=== PATIENT | male | born 1955 | race African-American/Black ===

== ENCOUNTER → 2017-08-22 16:59 | Outpatient (CLI) | payer OTHER, MEDICAID, SELFPAY ==
--- NOTE | 2017-08-22 17:03 | DI.MRI.S_ITS ---
PROCEDURE: MR KNEE RT WO CON INDICATIONS: RIGHT KNEE PAIN TECHNIQUE: Noncontrast sagittal PD fast spin echo and T2 fast spin echo with fat saturation, sagittal 3-D FLASH with fat saturation; coronal T1 spin echo and PD fast spin echo with fat saturation, and axial PD fast spin echo with fat saturation through the knee. COMPARISON: None. FINDINGS: Image quality: Excellent. Menisci: The medial and lateral menisci demonstrate normal morphology and internal signal. The meniscal root ligaments appear intact. Cruciate ligaments: The anterior and posterior cruciate ligaments appear intact. Medial structures: The medial collateral ligament appears intact. The posterior oblique ligament, semimembranosus tendon insertions, oblique popliteal ligament, and meniscocapsular junction appear intact. Visualized portions of the pes anserinus tendons appear normal. No abnormal bursal fluid. Lateral structures: The lateral collateral ligament, long and short heads of the biceps femoris tendon appear intact. The popliteus tendon appears normal; the popliteofibular ligament appears intact. The posterosuperior and anteroinferior popliteomeniscal fascicles appear intact. The arcuate and fabellofibular ligaments appear intact, on either side of the lateral inferior geniculate artery. Iliotibial band appears normal. Anterior structures: The quadriceps and patellar tendons appear intact. Patellar alignment is normal. No femoral trochlear dysplasia or ventral trochlear prominence. No edema in the infrapatellar fat pad. Bones and cartilage: No bone marrow contusions or fractures. The cartilage of the medial and lateral femorotibial compartments, as well as the patellofemoral compartment, appears only mildly reduced in thickness best seen at the medial compartment and the lateral facet of the patellofemoral joint. Joint space: There is physiologic knee joint fluid. No Shah's cyst. Normal appearing synovial plicae are incidentally noted. IMPRESSION: No meniscal tear or intra-articular loose body is found. Mild degenerative osteoarthritis as indicated by thinning of the medial compartment joint width and also that of the lateral facet of the patellofemoral joint. No ligamentous injury is found. Dictated by: Ronaldo Nelson M.D. on 08/23/2017 at 15:08 Approved by: Ronaldo Nelson M.D. on 08/23/2017 at 15:11
== END ==
PROVIDERS: Visit Provider Orthopaedic Surgery
DX: M25.561 Pain in right knee (principal); M17.11 Unilateral primary osteoarthritis, right knee
CPT/HCPCS: 73721

== ENCOUNTER 2017-09-08 11:15 | Outpatient (RCR) | payer OTHER, SELFPAY ==
--- NOTE | 2017-07-27 06:51 | PT.OIE ---
Current Diagnoses Unilateral primary osteoarthritis, right knee (07/26/17) Other abnormalities of gait and mobility (07/26/17) History of falling (07/26/17) Presence of right artificial hip joint (07/26/17) Past Medical History (Last Updated 07/26/17 @ 15:56 by Keerthi Torres, PT) Dacosta's palsy (Acute) Hypertension (Acute) Past Surgical History (Last Updated 07/26/17 @ 15:55 by Keerthi Torres, PT) History of hip replacement, total (Acute) S/P cervical spinal fusion (Acute) History of vasectomy Provider Visit Care Team Role Provider Type Lokesh Sheikh DO Attending Provider Non-Staff Specialty: Orthopedics Address: [address] [place] [address], [id number] Email: Physical Therapy Initial Evaluation PT-OP-A Visit Information Start: 07/26/17 07:24 Freq: Status: Active Protocol: Document 07/26/17 11:15 AMB (Rec: 07/26/17 16:11 AMB [email or web address]) Out-Patient Physical Therapy Visit Information Visit Information Visit Type Initial Evaluation Visit Note 45 visits per calendar year Visit Start Time 11:15 Visit Stop Time 12:05 Total Visit Minutes 50 Visit Number 1 Evaluation Information Evaluation Date 07/26/17 PT-OP-B Current Condition Start: 07/26/17 07:24 Freq: Status: Active Protocol: Document 07/26/17 11:15 AMB (Rec: 07/26/17 16:11 AMB [email or web address]) Current Condition History of Current Condition History of Current Condition The patient had a RIGHT lateral approach total hip replacement at the end of April 2017. He had a history of hip pain for many years, with some right knee pain. After the hip replacement, his hip pain has been well controlled, but he started having knee pain. He had a cortisone injection on and per his report that has taken away the knee pain, but he continues to have numbness and weakness in the right knee. He is wearing an over the counter brace on his knee, because he the the knee has given out on occasion and is fearful of falling. 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 Roll over in bed without pain. Don socks independently. Move from sit to stand without pain. Walk without a limp/ SPC. Ascend and descend stairs with an alternating gait pattern. Prior Functional Status Baseline Function- ADL's Modified Independent Baseline Function- Mobility Modified Independent Baseline Function- Gait Previously used over the counter knee brace but not using AD. Baseline Function- Work/School Had coworkers help lift the really heavy stuff, but was able to stand for 8 hours. Current Functional Impairments (Reported) Functional Limitations- ADL's Unable to don socks. Functional Limitations- Mobility/Gait Uses SPC for short distances, 4WW for longer distances (in the community). Functional Limitations- Work/School Has not yet returned to work. 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 PT-OP-C Subjective Start: 07/26/17 07:24 Freq: Status: Active Protocol: Document 07/26/17 11:15 AMB (Rec: 07/26/17 16:11 AMB [email or web address]) OP-PT Subjective Patient Comments Patient Comments The patient is concerned about his knee numbness and weakness. 11 weeks out from surgery. OP-PT Pain Assessment Pain Assessment Grid Paper Pain Assessment Grid Completed Yes Location R knee Intensity 5 Scale Used Numeric (1 - 10) Frequency Intermittent Radiating Location anterior and posterior knee Pain Alleviating Factors Heat Other Pain Alleviating Factors movement (walking) PT-OP-G Mobility & Gait Start: 07/26/17 07:24 Freq: Status: Active Protocol: Document 07/26/17 11:15 AMB (Rec: 07/26/17 16:56 AMB [email or web address]) OP Mobility Evaluation Bed Mobility Rolling Pain and difficulty rolling OP Gait Assessment Gait Gait Assistance Required: Standby Assistance Assistive Devices Assistive Device Straight Cane Gait Deviations General Gait Pattern Antalgic Comments Gait Comments Decreased knee flexion with swing phase on the right. Fixed hip flexion, flat lumbar spine, lack of trunk rotation . PT-OP-J Posture/Palpation/Skin Start: 07/26/17 07:24 Freq: Status: Active Protocol: Document 07/26/17 11:15 AMB (Rec: 07/26/17 16:58 AMB [email or web address]) Posture Evaluation Position Standing Evaluation View Anterior Head/C-Spine Posture Forward Head Comments Posture Comments Fixed hip flexion in standing, flat lumbar spine. Palpation Assessment Location One Palpation Location R knee/ hip Palpation Findings Edema Palpation Details Mild swelling in popliteal fossa. No increase in pain with palpation of bony or soft tissue structures. Light touch sensation intact. PT-OP-K Range of Motion Start: 07/26/17 07:24 Freq: Status: Active Protocol: Document 07/26/17 11:15 AMB (Rec: 07/26/17 16:47 AMB [email or web address]) Hip Goniometric Range of Motion Hip Measured in Degrees Left Testing Position Supine Flexion w/Knee Flexed 100 Right Testing Position Supine Flexion w/Knee Flexed 85 Internal Rotation 10 External Rotation 15 Hip ROM Limitations Hip ROM Limitations Contracture Comments missing 35 degrees from neutral extension on the right , missing 10 degrees on the left Knee Goniometric Range of Motion Knee Measured in Degrees Right Patient Position Supine Flexion Passive (degrees) 115 Extension Passive (degrees) 2 PT-OP-M Strength Start: 07/26/17 07:24 Freq: Status: Active Protocol: Document 07/26/17 11:15 AMB (Rec: 07/26/17 16:47 AMB [email or web address]) Hip Strength Hip Manual Muscle Testing Left Flexion (L2) 4 Good Extension (S1) 4 Good Abduction 4 Good Right Flexion (L2) 4- Good- Extension (S1) 4- Good- Abduction 3+ Fair+ Comments pain with abduction Knee Strength Knee Manual Muscle Testing Left Flexion (S2) 4+ Good+ Extension (L3) 4+ Good+ Right Flexion (S2) 4 Good Extension (L3) 4 Good Ankle/Foot Strength Ankle and Foot Manual Muscle Testing Left Dorsiflexion (L4) 5 Normal Plantarflexion (S1) 5 Normal Right Dorsiflexion (L4) 5 Normal Plantarflexion (S1) 5 Normal PT-OP-T Assessment and Plan Start: 07/26/17 07:24 Freq: Status: Active Protocol: Document 07/26/17 11:15 AMB (Rec: 07/26/17 17:09 AMB [email or web address]) Physical Therapy Assessment Rehab Potential Rehabilitation Potential Good Evaluation Complexity Number of Personal Factors/Comorbidities 1-2 Number of Body Systems Impaired 4 or More Clinical Presentation at Evaluation Evolving Impairments Impairments Activity Tolerance Balance Edema Functional Activities Functional Mobility Gait Pain Posture ROM Strength Goals 4 Impairment Lifting Short Term Goal (STG) The patient will perform a partial squat without upper extremity support without loss of balance. STG Duration 4 weeks Assisted Goal (LTG) The patient will lift 20 pounds from the floor to waist height. LTG Duration 8 weeks 3 Impairment Gait Short Term Goal (STG) The patient will ambulate without assistive device without antalgia over smooth surfaces for 100 feet. STG Duration 4 weeks Permanent Waver Goal (LTG) The patient will ambulate in the community (hills, grass, gravel) for 20 minutes without LOB or an increase in pain. LTG Duration 8 weeks 2 Impairment Transfers Short Term Goal (STG) The patient will perform all bed mobility without increasing his pain or numbness. STG Duration 4 weeks Permanent Waver Goal (LTG) The patient will move from sit to stand without an increase in pain or numbness. LTG Duration 8 weeks 1 Impairment ROM Short Term Goal (STG) The patient will improve his hip range of motion on the right to lacking 10 degrees. STG Duration 4 weeks Permanent Waver Goal (LTG) The patient will improve his knee and hip range of motion so that he can stand upright with good posture without his cane for 20 minutes without an increase in pain. LTG Duration 8 weeks Assessment Summary Assessment The patient presents 11 weeks s/p lateral approach R ANTON. He was previously having knee pain on the right, but had a cortisone shot and that helped with the knee pain but not the weakness or the numbness. The numbness is intermittent in nature, worse with sit to stand and rolling in bed, but numbness also makes him grimace like it is painful. He presents with difficulty with gait and functional mobility, and is hoping to return to work which will require extensive standing. The patient will benefit from strengthening his knee and hip musculature in addition to working to reduce his hip flexion contracture. Physical Therapy Plan Frequency and Duration Frequency of Treatment 2x/Week Duration of Treatment 8 weeks Plan of Care Start Date 07/26/17 Plan of Care End Date 08/21/17 Therapeutic Interventions Therapeutic Interventions Aquatic Therapy Balance Training Gait Training Home Exercise Program Joint Mobilizations Manual Therapy Neuromuscular Re-education Self-Care/Home Management Therapeutic Activities Therapeutic Exercises Modalities Cold Pack/Ice Massage Electric Stimulation Hot Packs Next Visit Focus/Plan Next Visit Plan Begin instruction in HEP for hip/knee strengthening and ROM . Begin instruction in body mechanics. Provider Signature Date
--- NOTE | 2017-07-27 06:54 | PT.OPPOC ---
Current Diagnoses Unilateral primary osteoarthritis, right knee (07/26/17) Other abnormalities of gait and mobility (07/26/17) History of falling (07/26/17) Presence of right artificial hip joint (07/26/17) Provider Visit Care Team Role Provider Type Lokesh Sheikh DO Attending Provider Non-Staff Specialty: Orthopedics Address: [address] [place] [address], [id number] Email: Plan Of Care PT-OP-T Assessment and Plan Start: 07/26/17 07:24 Freq: Status: Active Protocol: Document 07/26/17 11:15 AMB (Rec: 07/26/17 17:09 AMB [email or web address]) Physical Therapy Assessment Rehab Potential Rehabilitation Potential Good Evaluation Complexity Number of Personal Factors/Comorbidities 1-2 Number of Body Systems Impaired 4 or More Clinical Presentation at Evaluation Evolving Impairments Impairments Activity Tolerance Balance Edema Functional Activities Functional Mobility Gait Pain Posture ROM Strength Goals 4 Impairment Lifting Short Term Goal (STG) The patient will perform a partial squat without upper extremity support without loss of balance. STG Duration 4 weeks Assisted Goal (LTG) The patient will lift 20 pounds from the floor to waist height. LTG Duration 8 weeks 3 Impairment Gait Short Term Goal (STG) The patient will ambulate without assistive device without antalgia over smooth surfaces for 100 feet. STG Duration 4 weeks Franchise Development Manager Goal (LTG) The patient will ambulate in the community (hills, grass, gravel) for 20 minutes without LOB or an increase in pain. LTG Duration 8 weeks 2 Impairment Transfers Short Term Goal (STG) The patient will perform all bed mobility without increasing his pain or numbness. STG Duration 4 weeks Franchise Development Manager Goal (LTG) The patient will move from sit to stand without an increase in pain or numbness. LTG Duration 8 weeks 1 Impairment ROM Short Term Goal (STG) The patient will improve his hip range of motion on the right to lacking 10 degrees. STG Duration 4 weeks Franchise Development Manager Goal (LTG) The patient will improve his knee and hip range of motion so that he can stand upright with good posture without his cane for 20 minutes without an increase in pain. LTG Duration 8 weeks Assessment Summary Assessment The patient presents 11 weeks s/p lateral approach R ANTON. He was previously having knee pain on the right, but had a cortisone shot and that helped with the knee pain but not the weakness or the numbness. The numbness is intermittent in nature, worse with sit to stand and rolling in bed, but numbness also makes him grimace like it is painful. He presents with difficulty with gait and functional mobility, and is hoping to return to work which will require extensive standing. The patient will benefit from strengthening his knee and hip musculature in addition to working to reduce his hip flexion contracture. Physical Therapy Plan Frequency and Duration Frequency of Treatment 2x/Week Duration of Treatment 8 weeks Plan of Care Start Date 07/26/17 Plan of Care End Date 08/21/17 Therapeutic Interventions Therapeutic Interventions Aquatic Therapy Balance Training Gait Training Home Exercise Program Joint Mobilizations Manual Therapy Neuromuscular Re-education Self-Care/Home Management Therapeutic Activities Therapeutic Exercises Modalities Cold Pack/Ice Massage Electric Stimulation Hot Packs Next Visit Focus/Plan Next Visit Plan Begin instruction in HEP for hip/knee strengthening and ROM . Begin instruction in body mechanics. Plan of Care Dates Plan of Care Start Date 07/26/17 Plan of Care End Date 08/21/17 Please Sign and Return: I have reviewed this Plan of Care and certify that the skilled therapy services above are required to meet the patient???s needs. Physician Signature Date Printed Name and Credentials
--- NOTE | 2017-07-28 17:18 | PT.OTN ---
Current Diagnoses Unilateral primary osteoarthritis, right knee (07/28/17) Presence of right artificial hip joint (07/28/17) Physical Therapy Treatment Note PT-OP-A Visit Information Start: 07/26/17 07:24 Freq: Status: Active Protocol: Document 07/28/17 15:15 DCW (Rec: 07/28/17 17:18 DCW [id number]) Out-Patient Physical Therapy Visit Information Visit Information Visit Type Treatment Note Visit Start Time 15:15 Visit Stop Time 16:05 Total Visit Minutes 50 Visit Number 2 Evaluation Information Evaluation Date 07/26/17 PT-OP-B Current Condition Start: 07/26/17 07:24 Freq: Status: Active Protocol: Document 07/26/17 11:15 AMB (Rec: 07/26/17 16:11 AMB [email or web address]) Current Condition History of Current Condition History of Current Condition The patient had a RIGHT lateral approach total hip replacement at the end of April 2017. He had a history of hip pain for many years, with some right knee pain. After the hip replacement, his hip pain has been well controlled, but he started having knee pain. He had a cortisone injection on and per his report that has taken away the knee pain, but he continues to have numbness and weakness in the right knee. He is wearing an over the counter brace on his knee, because he the the knee has given out on occasion and is fearful of falling. 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 Roll over in bed without pain. Don socks independently. Move from sit to stand without pain. Walk without a limp/ SPC. Ascend and descend stairs with an alternating gait pattern. Prior Functional Status Baseline Function- ADL's Modified Independent Baseline Function- Mobility Modified Independent Baseline Function- Gait Previously used over the counter knee brace but not using AD. Baseline Function- Work/School Had coworkers help lift the really heavy stuff, but was able to stand for 8 hours. Current Functional Impairments (Reported) Functional Limitations- ADL's Unable to don socks. Functional Limitations- Mobility/Gait Uses SPC for short distances, 4WW for longer distances (in the community). Functional Limitations- Work/School Has not yet returned to work. 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 PT-OP-C Subjective Start: 07/26/17 07:24 Freq: Status: Active Protocol: Document 07/28/17 15:15 DCW (Rec: 07/28/17 17:18 DCW [id number]) OP-PT Subjective Patient Comments Patient Comments Pt reports he feels okay. PT-OP-Q Treatments Start: 07/26/17 07:24 Freq: Status: Active Protocol: Document 07/28/17 15:15 DCW (Rec: 07/28/17 17:18 DCW [id number]) Cardio Equipment Recumbent Elliptical (BiodAppwoRx) Duration (Minutes) 5 Resistance 3 Seat Position 16 Gym Equipment Shuttle Recovery Unilateral Squats Resistance 62# Shuttle Recovery Platform Stable Reps/Time x20 Bilateral Squats Resistance 125# Shuttle Recovery Platform Stable Reps/Time x20 Therapeutic Exercises Supine Exercises 2 Supine Exercise Name SLR Resistance 0 1 Supine Exercise Name Bridging Sidelying Exercises 2 Sidelying Exercise Name SLR - Abduction Side right Comments Pillow between legs 1 Sidelying Exercise Name Clam Shell Side right Equipment Used Pillow between legs Standing Exercises 1 Standing Exercise Name Step-ups Side right Equipment Used 6 step, Rail Manual Therapy Treatment Soft Tissue Mobilization 1 Body Location Psoas Mobilization Type Strumming Sustained Pressure Intensity/Depth Deep Body Position Supine Manual Techniques 2 Type Hamsting manual tissue elongation Body Position Supine 1 Type Hip flexor manual tissue elongation Body Position Supine PT-OP-R Modalities Start: 07/26/17 07:24 Freq: Status: Active Protocol: Document 07/28/17 15:15 DCW (Rec: 07/28/17 17:18 DCW [id number]) Hot Pack/Cold Pack Treatment Cold Pack Location R hip Patient Position Supine Treatment Duration (minutes) 10 Patient Tolerance Good PT-OP-T Assessment and Plan Start: 07/26/17 07:24 Freq: Status: Active Protocol: Document 07/28/17 15:15 DCW (Rec: 07/28/17 17:18 DCW [id number]) Physical Therapy Assessment Rehab Potential Rehabilitation Potential Good Impairments Impairments Activity Tolerance Balance Edema Functional Activities Functional Mobility Gait Pain Posture ROM Strength Goals 4 Impairment Lifting Short Term Goal (STG) The patient will perform a partial squat without upper extremity support without loss of balance. STG Duration 4 weeks Shelter Goal (LTG) The patient will lift 20 pounds from the floor to waist height. LTG Duration 8 weeks 3 Impairment Gait Short Term Goal (STG) The patient will ambulate without assistive device without antalgia over smooth surfaces for 100 feet. STG Duration 4 weeks Shelter Goal (LTG) The patient will ambulate in the community (hills, grass, gravel) for 20 minutes without LOB or an increase in pain. LTG Duration 8 weeks 2 Impairment Transfers Short Term Goal (STG) The patient will perform all bed mobility without increasing his pain or numbness. STG Duration 4 weeks Shelter Goal (LTG) The patient will move from sit to stand without an increase in pain or numbness. LTG Duration 8 weeks 1 Impairment ROM Short Term Goal (STG) The patient will improve his hip range of motion on the right to lacking 10 degrees. STG Duration 4 weeks Shelter Goal (LTG) The patient will improve his knee and hip range of motion so that he can stand upright with good posture without his cane for 20 minutes without an increase in pain. LTG Duration 8 weeks Assessment Summary Assessment Pt tolerated TherEx well today , although was clearly fatigued by the end. Pt continues to struggle with hip extension. Physical Therapy Plan Frequency and Duration Frequency of Treatment 2x/Week Duration of Treatment 8 weeks Plan of Care Start Date 07/26/17 Plan of Care End Date 08/21/17 Therapeutic Interventions Therapeutic Interventions Aquatic Therapy Balance Training Gait Training Home Exercise Program Joint Mobilizations Manual Therapy Neuromuscular Re-education Self-Care/Home Management Therapeutic Activities Therapeutic Exercises Modalities Cold Pack/Ice Massage Electric Stimulation Hot Packs Next Visit Focus/Plan Next Visit Plan Continued hip/knee strengthening and ROM
--- NOTE | 2017-08-02 15:58 | PT.OTN ---
Current Diagnoses Unilateral primary osteoarthritis, right knee (08/02/17) Presence of right artificial hip joint (08/02/17) Physical Therapy Treatment Note PT-OP-A Visit Information Start: 07/26/17 07:24 Freq: Status: Active Protocol: Document 08/02/17 11:15 AMB (Rec: 08/02/17 11:16 AMB [id number]) Out-Patient Physical Therapy Visit Information Visit Information Visit Type Treatment Note Visit Start Time 11:15 Visit Stop Time 12:00 Total Visit Minutes 45 Visit Number 3 PT-OP-B Current Condition Start: 07/26/17 07:24 Freq: Status: Active Protocol: Document 07/26/17 11:15 AMB (Rec: 07/26/17 16:11 AMB [email or web address]) Current Condition History of Current Condition History of Current Condition The patient had a RIGHT lateral approach total hip replacement at the end of April 2017. He had a history of hip pain for many years, with some right knee pain. After the hip replacement, his hip pain has been well controlled, but he started having knee pain. He had a cortisone injection on and per his report that has taken away the knee pain, but he continues to have numbness and weakness in the right knee. He is wearing an over the counter brace on his knee, because he the the knee has given out on occassion and is fearful of falling. 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 Roll over in bed without pain. Don socks independently. Move from sit to stand without pain. Walk without a limp/ SPC. Ascend and descend stairs with an alternating gait pattern. Prior Functional Status Baseline Function- ADL's Modified Independent Baseline Function- Mobility Modified Independent Baseline Function- Gait Previously used over the counter knee brace but not using AD. Baseline Function- Work/School Had coworkers help lift the really heavy stuff, but was able to stand for 8 hours. Current Functional Impairments (Reported) Functional Limitations- ADL's Unable to don socks. Functional Limitations- Mobility/Gait Uses SPC for short distances, 4WW for longer distances (in the community). Functional Limitations- Work/School Has not yet returned to work. 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 PT-OP-C Subjective Start: 07/26/17 07:24 Freq: Status: Active Protocol: Document 08/02/17 11:15 AMB (Rec: 08/02/17 11:23 AMB [id number]) OP-PT Subjective Patient Comments Patient Comments The patient reports he was a little sore after last visit, but is doing well today. The ice helped. PT-OP-G Mobility & Gait Start: 07/26/17 07:24 Freq: Status: Active Protocol: Document 07/26/17 11:15 AMB (Rec: 07/26/17 16:56 AMB [email or web address]) OP Mobility Evaluation Bed Mobility Rolling Pain and difficulty rolling OP Gait Assessment Gait Gait Assistance Required: Standby Assistance Assistive Devices Assistive Device Straight Cane Gait Deviations General Gait Pattern Antalgic Comments Gait Comments Decreased knee flexion with swing phase on the right. Fixed hip flexion, flat lumbar spine, lack of trunk rotation . PT-OP-J Posture/Palpation/Skin Start: 07/26/17 07:24 Freq: Status: Active Protocol: Document 07/26/17 11:15 AMB (Rec: 07/26/17 16:58 AMB [email or web address]) Posture Evaluation Position Standing Evaluation View Anterior Head/C-Spine Posture Forward Head Comments Posture Comments Fixed hip flexion in standing, flat lumbar spine. Palpation Assessment Location One Palpation Location R knee/ hip Palpation Findings Edema Palpation Details Mild swelling in popliteal fossa. No increase in pain with palpation of bony or soft tissue structures. Light touch sensation intact. PT-OP-K Range of Motion Start: 07/26/17 07:24 Freq: Status: Active Protocol: Document 07/26/17 11:15 AMB (Rec: 07/26/17 16:47 AMB [email or web address]) Hip Goniometric Range of Motion Hip Measured in Degrees Left Testing Position Supine Flexion w/Knee Flexed 100 Right Testing Position Supine Flexion w/Knee Flexed 85 Internal Rotation 10 External Rotation 15 Hip ROM Limitations Hip ROM Limitations Contracture Comments missing 35 degrees from neutral extension on the right , missing 10 degrees on the left Knee Goniometric Range of Motion Knee Measured in Degrees Right Patient Position Supine Flexion Passive (degrees) 115 Extension Passive (degrees) 2 PT-OP-M Strength Start: 07/26/17 07:24 Freq: Status: Active Protocol: Document 07/26/17 11:15 AMB (Rec: 07/26/17 16:47 AMB [email or web address]) Hip Strength Hip Manual Muscle Testing Left Flexion (L2) 4 Good Extension (S1) 4 Good Abduction 4 Good Right Flexion (L2) 4- Good- Extension (S1) 4- Good- Abduction 3+ Fair+ Comments pain with abduction Knee Strength Knee Manual Muscle Testing Left Flexion (S2) 4+ Good+ Extension (L3) 4+ Good+ Right Flexion (S2) 4 Good Extension (L3) 4 Good Ankle/Foot Strength Ankle and Foot Manual Muscle Testing Left Dorsiflexion (L4) 5 Normal Plantarflexion (S1) 5 Normal Right Dorsiflexion (L4) 5 Normal Plantarflexion (S1) 5 Normal PT-OP-Q Treatments Start: 07/26/17 07:24 Freq: Status: Active Protocol: Document 08/02/17 11:15 AMB (Rec: 08/02/17 15:55 AMB [email or web address]) Cardio Equipment Recumbent Stepper (Sci-Fit) Duration (Minutes) 5 Resistance 5 Seat Position 15 Gym Equipment Shuttle Recovery Unilateral Squats Resistance 62# Shuttle Recovery Platform Stable Reps/Time x20 Bilateral Squats Resistance 125# Shuttle Recovery Platform Stable Reps/Time x20 Therapeutic Exercises Supine Exercises 2 Supine Exercise Name SLR Resistance 0 1 Supine Exercise Name Bridging Comments changed to pelvic tilt, back pain with bridge Sidelying Exercises 2 Sidelying Exercise Name SLR - Abduction Side right Comments Pillow between legs. quite difficult 1 Sidelying Exercise Name Clam Shell Side right Equipment Used Pillow between legs Therapeutic Activity Therapeutic Activity 2 Name Lifting training Reps/Minutes 20# Comments knee to waist height Manual Therapy Treatment Soft Tissue Mobilization 1 Body Location Psoas Mobilization Type Strumming Sustained Pressure Intensity/Depth Deep Body Position Supine Manual Techniques 1 Type Hip flexor manual tissue elongation Body Position Supine Neuro Re-Education Treatment Balance Activities 1 Details Static stride stance Comments without UE support PT-OP-R Modalities Start: 07/26/17 07:24 Freq: Status: Active Protocol: Document 08/02/17 11:15 AMB (Rec: 08/02/17 15:55 AMB [email or web address]) Hot Pack/Cold Pack Treatment Cold Pack Location R hip/ knee Patient Position Hooklying Treatment Duration (minutes) 10 Patient Tolerance Good PT-OP-T Assessment and Plan Start: 07/26/17 07:24 Freq: Status: Active Protocol: Document 08/02/17 11:15 AMB (Rec: 08/02/17 15:55 AMB [email or web address]) Physical Therapy Assessment Goals 4 Impairment Lifting Short Term Goal (STG) The patient will perform a partial squat without upper extremity support without loss of balance. STG Duration 4 weeks Graduate Assistant Athletic Trainer Goal (LTG) The patient will lift 20 pounds from the floor to waist height. LTG Duration 8 weeks 3 Impairment Gait Short Term Goal (STG) The patient will ambulate without assistive device without antalgia over smooth surfaces for 100 feet. STG Duration 4 weeks Skilled Nursing Goal (LTG) The patient will ambulate in the community (hills, grass, gravel) for 20 minutes without LOB or an increase in pain. LTG Duration 8 weeks 2 Impairment Transfers Short Term Goal (STG) The patient will perform all bed mobility without increasing his pain or numbness. STG Duration 4 weeks Graduate Assistant Athletic Trainer Goal (LTG) The patient will move from sit to stand without an increase in pain or numbness. LTG Duration 8 weeks 1 Impairment ROM Short Term Goal (STG) The patient will improve his hip range of motion on the right to lacking 10 degrees. STG Duration 4 weeks Graduate Assistant Athletic Trainer Goal (LTG) The patient will improve his knee and hip range of motion so that he can stand upright with good posture without his cane for 20 minutes without an increase in pain. LTG Duration 8 weeks Assessment Summary Assessment Pt with difficulty with lifting training more because of balance than strength today . More pain in hip than in knee today. Tenderness over IT band with squatting. Physical Therapy Plan Frequency and Duration Frequency of Treatment 2x/Week Duration of Treatment 8 weeks Plan of Care Start Date 07/26/17 Plan of Care End Date 08/21/17 Next Visit Focus/Plan Next Visit Plan Continue hip/knee strengthening and ROM, progress body mechanics and balance. Please Sign and Return: I have reviewed this Plan of Care and certify that the skilled therapy services above are required to meet the patient???s needs. Physician Signature Date Printed Name and Credentials Clinical Instructor Signature Printed Name and Credentials
--- NOTE | 2017-08-04 13:15 | PT.OTN ---
Current Diagnoses Unilateral primary osteoarthritis, right knee (08/04/17) Presence of right artificial hip joint (08/04/17) Physical Therapy Treatment Note PT-OP-A Visit Information Start: 07/26/17 07:24 Freq: Status: Active Protocol: Document 08/04/17 11:20 AMB (Rec: 08/04/17 11:20 AMB [id number]) Out-Patient Physical Therapy Visit Information Visit Information Visit Type Treatment Note Visit Start Time 11:15 Visit Stop Time 12:00 Total Visit Minutes 45 Visit Number 4 Evaluation Information Evaluation Date 07/26/17 PT-OP-B Current Condition Start: 07/26/17 07:24 Freq: Status: Active Protocol: Document 07/26/17 11:15 AMB (Rec: 07/26/17 16:11 AMB [email or web address]) Current Condition History of Current Condition History of Current Condition The patient had a RIGHT lateral approach total hip replacement at the end of April 2017. He had a history of hip pain for many years, with some right knee pain. After the hip replacement, his hip pain has been well controlled, but he started having knee pain. He had a cortisone injection on and per his report that has taken away the knee pain, but he continues to have numbness and weakness in the right knee. He is wearing an over the counter brace on his knee, because he the the knee has given out on occassion and is fearful of falling. 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 Roll over in bed without pain. Don socks independently. Move from sit to stand without pain. Walk without a limp/ SPC. Ascend and descend stairs with an alternating gait pattern. Prior Functional Status Baseline Function- ADL's Modified Independent Baseline Function- Mobility Modified Independent Baseline Function- Gait Previously used over the counter knee brace but not using AD. Baseline Function- Work/School Had coworkers help lift the really heavy stuff, but was able to stand for 8 hours. Current Functional Impairments (Reported) Functional Limitations- ADL's Unable to don socks. Functional Limitations- Mobility/Gait Uses SPC for short distances, 4WW for longer distances (in the community). Functional Limitations- Work/School Has not yet returned to work. 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 PT-OP-C Subjective Start: 07/26/17 07:24 Freq: Status: Active Protocol: Document 08/04/17 11:20 AMB (Rec: 08/04/17 11:22 AMB [id number]) OP-PT Subjective Patient Comments Patient Comments Pt reports he was sore in the hip and the knee for about 3 hours after last visit. He went on a long walk yesterday with the cane and that went well. He tried the balance exercises and those are hard when he is tired. PT-OP-G Mobility & Gait Start: 07/26/17 07:24 Freq: Status: Active Protocol: Document 07/26/17 11:15 AMB (Rec: 07/26/17 16:56 AMB [email or web address]) OP Mobility Evaluation Bed Mobility Rolling Pain and difficulty rolling OP Gait Assessment Gait Gait Assistance Required: Standby Assistance Assistive Devices Assistive Device Straight Cane Gait Deviations General Gait Pattern Antalgic Comments Gait Comments Decreased knee flexion with swing phase on the right. Fixed hip flexion, flat lumbar spine, lack of trunk rotation . PT-OP-J Posture/Palpation/Skin Start: 07/26/17 07:24 Freq: Status: Active Protocol: Document 07/26/17 11:15 AMB (Rec: 07/26/17 16:58 AMB [email or web address]) Posture Evaluation Position Standing Evaluation View Anterior Head/C-Spine Posture Forward Head Comments Posture Comments Fixed hip flexion in standing, flat lumbar spine. Palpation Assessment Location One Palpation Location R knee/ hip Palpation Findings Edema Palpation Details Mild swelling in popliteal fossa. No increase in pain with palpation of bony or soft tissue structures. Light touch sensation intact. PT-OP-K Range of Motion Start: 07/26/17 07:24 Freq: Status: Active Protocol: Document 07/26/17 11:15 AMB (Rec: 07/26/17 16:47 AMB [email or web address]) Hip Goniometric Range of Motion Hip Measured in Degrees Left Testing Position Supine Flexion w/Knee Flexed 100 Right Testing Position Supine Flexion w/Knee Flexed 85 Internal Rotation 10 External Rotation 15 Hip ROM Limitations Hip ROM Limitations Contracture Comments missing 35 degrees from neutral extension on the right , missing 10 degrees on the left Knee Goniometric Range of Motion Knee Measured in Degrees Right Patient Position Supine Flexion Passive (degrees) 115 Extension Passive (degrees) 2 PT-OP-M Strength Start: 07/26/17 07:24 Freq: Status: Active Protocol: Document 07/26/17 11:15 AMB (Rec: 07/26/17 16:47 AMB [email or web address]) Hip Strength Hip Manual Muscle Testing Left Flexion (L2) 4 Good Extension (S1) 4 Good Abduction 4 Good Right Flexion (L2) 4- Good- Extension (S1) 4- Good- Abduction 3+ Fair+ Comments pain with abduction Knee Strength Knee Manual Muscle Testing Left Flexion (S2) 4+ Good+ Extension (L3) 4+ Good+ Right Flexion (S2) 4 Good Extension (L3) 4 Good Ankle/Foot Strength Ankle and Foot Manual Muscle Testing Left Dorsiflexion (L4) 5 Normal Plantarflexion (S1) 5 Normal Right Dorsiflexion (L4) 5 Normal Plantarflexion (S1) 5 Normal PT-OP-Q Treatments Start: 07/26/17 07:24 Freq: Status: Active Protocol: Document 08/04/17 11:15 AMB (Rec: 08/04/17 13:12 AMB [email or web address]) Cardio Equipment Recumbent Elliptical (Biodex) Duration (Minutes) 6 Resistance 5 Seat Position 16 Gym Equipment Shuttle Recovery Unilateral Squats Resistance 75# Shuttle Recovery Platform Stable Reps/Time x20 Bilateral Squats Resistance 125# Shuttle Recovery Platform Stable Reps/Time x30 Therapeutic Exercises Supine Exercises 3 Supine Exercise Name hip flexor stretch Side right Reps/Minutes 30 x 4 Sidelying Exercises 2 Sidelying Exercise Name SLR - Abduction Side right Reps/Minutes x10 Comments Pillow between legs 1 Sidelying Exercise Name Clam Shell Side right Equipment Used Pillow between legs Reps/Minutes 2x10 Standing Exercises 3 Standing Exercise Name forward lunges Reps/Minutes 2 x 10 Comments with SPC, cues for form 2 Standing Exercise Name squats Reps/Minutes 2 x 10 Comments holding onto rail, then no UE support 1 Standing Exercise Name Step-ups Side right Equipment Used 6 step, Rail Gait Training Gait Activity 1 Description 6 stairs Device Used 1 railing Level of Assistance CGA then SBA Comments step to and then progressed to step over step PT-OP-R Modalities Start: 07/26/17 07:24 Freq: Status: Active Protocol: Document 08/04/17 11:15 AMB (Rec: 08/04/17 13:14 AMB [email or web address]) Hot Pack/Cold Pack Treatment Cold Pack Location R hip/ knee Patient Position Hooklying Treatment Duration (minutes) 10 Patient Tolerance Good PT-OP-T Assessment and Plan Start: 07/26/17 07:24 Freq: Status: Active Protocol: Document 08/04/17 11:15 AMB (Rec: 08/04/17 13:14 AMB [email or web address]) Physical Therapy Assessment Assessment Summary Assessment Tenderness over IT band continues, but better squat and step up form. Physical Therapy Plan Frequency and Duration Frequency of Treatment 2x/Week Duration of Treatment 8 weeks Plan of Care Start Date 07/26/17 Plan of Care End Date 08/21/17 Next Visit Focus/Plan Next Note Type Treatment Note Next Visit Plan Work to reduce lateral hip pain. Please Sign and Return: I have reviewed this Plan of Care and certify that the skilled therapy services above are required to meet the patient???s needs. Physician Signature Date Printed Name and Credentials Clinical Instructor Signature Printed Name and Credentials
--- NOTE | 2017-08-10 15:31 | PT.OTN ---
Current Diagnoses Unilateral primary osteoarthritis, right knee (08/10/17) Presence of right artificial hip joint (08/10/17) Physical Therapy Treatment Note PT-OP-A Visit Information Start: 07/26/17 07:24 Freq: Status: Active Protocol: Document 08/10/17 11:13 AMB (Rec: 08/10/17 11:14 AMB [id number]) Out-Patient Physical Therapy Visit Information Visit Information Visit Type Treatment Note Visit Start Time 11:15 Visit Stop Time 12:00 Total Visit Minutes 45 Visit Number 5 Evaluation Information Evaluation Date 07/26/17 PT-OP-B Current Condition Start: 07/26/17 07:24 Freq: Status: Active Protocol: Document 07/26/17 11:15 AMB (Rec: 07/26/17 16:11 AMB [email or web address]) Current Condition History of Current Condition History of Current Condition The patient had a RIGHT lateral approach total hip replacement at the end of April 2017. He had a history of hip pain for many years, with some right knee pain. After the hip replacement, his hip pain has been well controlled, but he started having knee pain. He had a cortisone injection on and per his report that has taken away the knee pain, but he continues to have numbness and weakness in the right knee. He is wearing an over the counter brace on his knee, because he the the knee has given out on occassion and is fearful of falling. 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 Roll over in bed without pain. Don socks independently. Move from sit to stand without pain. Walk without a limp/ SPC. Ascend and descend stairs with an alternating gait pattern. Prior Functional Status Baseline Function- ADL's Modified Independent Baseline Function- Mobility Modified Independent Baseline Function- Gait Previously used over the counter knee brace but not using AD. Baseline Function- Work/School Had coworkers help lift the really heavy stuff, but was able to stand for 8 hours. Current Functional Impairments (Reported) Functional Limitations- ADL's Unable to don socks. Functional Limitations- Mobility/Gait Uses SPC for short distances, 4WW for longer distances (in the community). Functional Limitations- Work/School Has not yet returned to work. 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 PT-OP-C Subjective Start: 07/26/17 07:24 Freq: Status: Active Protocol: Document 08/10/17 11:15 AMB (Rec: 08/10/17 15:28 AMB [email or web address]) OP-PT Subjective Patient Comments Patient Comments Pt reports that his radiator blew up on the way to his orthopedic surgeon, so he will not be seeing him until mid August. He reports posterior knee pain after moving form sit to stand after being sedentary. PT-OP-G Mobility & Gait Start: 07/26/17 07:24 Freq: Status: Active Protocol: Document 07/26/17 11:15 AMB (Rec: 07/26/17 16:56 AMB [email or web address]) OP Mobility Evaluation Bed Mobility Rolling Pain and difficulty rolling OP Gait Assessment Gait Gait Assistance Required: Standby Assistance Assistive Devices Assistive Device Straight Cane Gait Deviations General Gait Pattern Antalgic Comments Gait Comments Decreased knee flexion with swing phase on the right. Fixed hip flexion, flat lumbar spine, lack of trunk rotation . PT-OP-J Posture/Palpation/Skin Start: 07/26/17 07:24 Freq: Status: Active Protocol: Document 07/26/17 11:15 AMB (Rec: 07/26/17 16:58 AMB [email or web address]) Posture Evaluation Position Standing Evaluation View Anterior Head/C-Spine Posture Forward Head Comments Posture Comments Fixed hip flexion in standing, flat lumbar spine. Palpation Assessment Location One Palpation Location R knee/ hip Palpation Findings Edema Palpation Details Mild swelling in popliteal fossa. No increase in pain with palpation of bony or soft tissue structures. Light touch sensation intact. PT-OP-K Range of Motion Start: 07/26/17 07:24 Freq: Status: Active Protocol: Document 07/26/17 11:15 AMB (Rec: 07/26/17 16:47 AMB [email or web address]) Hip Goniometric Range of Motion Hip Measured in Degrees Left Testing Position Supine Flexion w/Knee Flexed 100 Right Testing Position Supine Flexion w/Knee Flexed 85 Internal Rotation 10 External Rotation 15 Hip ROM Limitations Hip ROM Limitations Contracture Comments missing 35 degrees from neutral extension on the right , missing 10 degrees on the left Knee Goniometric Range of Motion Knee Measured in Degrees Right Patient Position Supine Flexion Passive (degrees) 115 Extension Passive (degrees) 2 PT-OP-M Strength Start: 07/26/17 07:24 Freq: Status: Active Protocol: Document 07/26/17 11:15 AMB (Rec: 07/26/17 16:47 AMB [email or web address]) Hip Strength Hip Manual Muscle Testing Left Flexion (L2) 4 Good Extension (S1) 4 Good Abduction 4 Good Right Flexion (L2) 4- Good- Extension (S1) 4- Good- Abduction 3+ Fair+ Comments pain with abduction Knee Strength Knee Manual Muscle Testing Left Flexion (S2) 4+ Good+ Extension (L3) 4+ Good+ Right Flexion (S2) 4 Good Extension (L3) 4 Good Ankle/Foot Strength Ankle and Foot Manual Muscle Testing Left Dorsiflexion (L4) 5 Normal Plantarflexion (S1) 5 Normal Right Dorsiflexion (L4) 5 Normal Plantarflexion (S1) 5 Normal PT-OP-Q Treatments Start: 07/26/17 07:24 Freq: Status: Active Protocol: Document 08/10/17 11:15 AMB (Rec: 08/10/17 11:26 AMB [id number]) Cardio Equipment Recumbent Elliptical (Biodex) Duration (Minutes) 6 Resistance 5 Seat Position 16 Gym Equipment Shuttle Recovery Unilateral Squats Shuttle Recovery Platform Stable Bilateral Squats Shuttle Recovery Platform Stable Therapeutic Exercises Supine Exercises 4 Supine Exercise Name hamstring stretch Side right Comments passive 3 Supine Exercise Name hip flexor stretch Side right Reps/Minutes 30 x 4 Sidelying Exercises 2 Sidelying Exercise Name SLR - Abduction Side right Reps/Minutes x10 Comments Pillow between legs 1 Sidelying Exercise Name Clam Shell Side right Equipment Used Pillow between legs Reps/Minutes 2x10 Sitting Exercises 1 Sitting Exercise Name hamstring stretch Reps/Minutes 30 x4 Standing Exercises 3 Standing Exercise Name forward lunges Reps/Minutes 2 x 10 Comments with SPC, cues for form 2 Standing Exercise Name squats Reps/Minutes 2 x 10 Comments holding onto rail, then no UE support 1 Side right Therapeutic Activity Therapeutic Activity 2 Name Lifting training Reps/Minutes 20# Comments mcelroy to waist height Neuro Re-Education Treatment Balance Activities 1 Details Static stride stance Comments without UE support PT-OP-R Modalities Start: 07/26/17 07:24 Freq: Status: Active Protocol: Document 08/10/17 11:15 AMB (Rec: 05/30/18 12:58 [facility] [id number]) Hot Pack/Cold Pack Treatment Cold Pack Location R hip/ knee Patient Position Hooklying Treatment Duration (minutes) 10 Patient Tolerance Good PT-OP-T Assessment and Plan Start: 07/26/17 07:24 Freq: Status: Active Protocol: Document 08/10/17 11:15 AMB (Rec: 08/10/17 12:58 [facility] [id number]) Physical Therapy Assessment Assessment Summary Assessment Poor squat form today, difficulty bending and straightening hip in closed chain. Physical Therapy Plan Frequency and Duration Frequency of Treatment 2x/Week Duration of Treatment 8 weeks Plan of Care Start Date 07/26/17 Plan of Care End Date 09/20/17 Next Visit Focus/Plan Next Note Type Treatment Note Next Visit Plan Follow up on posterior knee pain Please Sign and Return: I have reviewed this Plan of Care and certify that the skilled therapy services above are required to meet the patient???s needs. Physician Signature Date Printed Name and Credentials Clinical Instructor Signature Printed Name and Credentials
--- NOTE | 2017-08-12 12:49 | PT.OTN ---
Current Diagnoses Unilateral primary osteoarthritis, right knee (08/12/17) Presence of right artificial hip joint (08/12/17) Physical Therapy Treatment Note PT-OP-A Visit Information Start: 07/26/17 07:24 Freq: Status: Active Protocol: Document 08/12/17 11:05 AMB (Rec: 08/12/17 11:11 AMB [id number]) Out-Patient Physical Therapy Visit Information Visit Information Visit Type Treatment Note Visit Start Time 11:15 Visit Stop Time 12:00 Total Visit Minutes 45 Visit Number 6 Evaluation Information Evaluation Date 07/26/17 PT-OP-B Current Condition Start: 07/26/17 07:24 Freq: Status: Active Protocol: Document 07/26/17 11:15 AMB (Rec: 07/26/17 16:11 AMB [email or web address]) Current Condition History of Current Condition History of Current Condition The patient had a RIGHT lateral approach total hip replacement at the end of April 2017. He had a history of hip pain for many years, with some right knee pain. After the hip replacement, his hip pain has been well controlled, but he started having knee pain. He had a cortisone injection on and per his report that has taken away the knee pain, but he continues to have numbness and weakness in the right knee. He is wearing an over the counter brace on his knee, because he the the knee has given out on occasion and is fearful of falling. 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 Roll over in bed without pain. Don socks independently. Move from sit to stand without pain. Walk without a limp/ SPC. Ascend and descend stairs with an alternating gait pattern. Prior Functional Status Baseline Function- ADL's Modified Independent Baseline Function- Mobility Modified Independent Baseline Function- Gait Previously used over the counter knee brace but not using AD. Baseline Function- Work/School Had coworkers help lift the really heavy stuff, but was able to stand for 8 hours. Current Functional Impairments (Reported) Functional Limitations- ADL's Unable to don socks. Functional Limitations- Mobility/Gait Uses SPC for short distances, 4WW for longer distances (in the community). Functional Limitations- Work/School Has not yet returned to work. 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 PT-OP-C Subjective Start: 07/26/17 07:24 Freq: Status: Active Protocol: Document 08/12/17 11:10 AMB (Rec: 08/12/17 11:14 AMB [id number]) OP-PT Subjective Patient Comments Patient Comments The patient reports his knee is feeling ok, his hip and knee get stiff after he has been sitting. PT-OP-G Mobility & Gait Start: 07/26/17 07:24 Freq: Status: Active Protocol: Document 07/26/17 11:15 AMB (Rec: 07/26/17 16:56 AMB [email or web address]) OP Mobility Evaluation Bed Mobility Rolling Pain and difficulty rolling OP Gait Assessment Gait Gait Assistance Required: Standby Assistance Assistive Devices Assistive Device Straight Cane Gait Deviations General Gait Pattern Antalgic Comments Gait Comments Decreased knee flexion with swing phase on the right. Fixed hip flexion, flat lumbar spine, lack of trunk rotation . PT-OP-J Posture/Palpation/Skin Start: 07/26/17 07:24 Freq: Status: Active Protocol: Document 07/26/17 11:15 AMB (Rec: 07/26/17 16:58 AMB [email or web address]) Posture Evaluation Position Standing Evaluation View Anterior Head/C-Spine Posture Forward Head Comments Posture Comments Fixed hip flexion in standing, flat lumbar spine. Palpation Assessment Location One Palpation Location R knee/ hip Palpation Findings Edema Palpation Details Mild swelling in popliteal fossa. No increase in pain with palpation of bony or soft tissue structures. Light touch sensation intact. PT-OP-K Range of Motion Start: 07/26/17 07:24 Freq: Status: Active Protocol: Document 07/26/17 11:15 AMB (Rec: 07/26/17 16:47 AMB [email or web address]) Hip Goniometric Range of Motion Hip Measured in Degrees Left Testing Position Supine Flexion w/Knee Flexed 100 Right Testing Position Supine Flexion w/Knee Flexed 85 Internal Rotation 10 External Rotation 15 Hip ROM Limitations Hip ROM Limitations Contracture Comments missing 35 degrees from neutral extension on the right , missing 10 degrees on the left Knee Goniometric Range of Motion Knee Measured in Degrees Right Patient Position Supine Flexion Passive (degrees) 115 Extension Passive (degrees) 2 PT-OP-M Strength Start: 07/26/17 07:24 Freq: Status: Active Protocol: Document 07/26/17 11:15 AMB (Rec: 07/26/17 16:47 AMB [email or web address]) Hip Strength Hip Manual Muscle Testing Left Flexion (L2) 4 Good Extension (S1) 4 Good Abduction 4 Good Right Flexion (L2) 4- Good- Extension (S1) 4- Good- Abduction 3+ Fair+ Comments pain with abduction Knee Strength Knee Manual Muscle Testing Left Flexion (S2) 4+ Good+ Extension (L3) 4+ Good+ Right Flexion (S2) 4 Good Extension (L3) 4 Good Ankle/Foot Strength Ankle and Foot Manual Muscle Testing Left Dorsiflexion (L4) 5 Normal Plantarflexion (S1) 5 Normal Right Dorsiflexion (L4) 5 Normal Plantarflexion (S1) 5 Normal PT-OP-Q Treatments Start: 07/26/17 07:24 Freq: Status: Active Protocol: Document 08/12/17 11:05 AMB (Rec: 08/12/17 12:46 AMB [email or web address]) Cardio Equipment Recumbent Stepper (Sci-Fit) Duration (Minutes) 5 Resistance 7 Seat Position 15 Therapeutic Exercises Supine Exercises 4 Supine Exercise Name hamstring stretch Side right Comments passive 3 Supine Exercise Name hip flexor stretch Side right Reps/Minutes 30 x 4 Sidelying Exercises 2 Sidelying Exercise Name SLR - Abduction Side right Reps/Minutes x10 Comments Pillow between legs 1 Sidelying Exercise Name Clam Shell Side right Equipment Used Pillow between legs Reps/Minutes 2x10 Sitting Exercises 1 Sitting Exercise Name hamstring stretch Reps/Minutes 30 x4 Standing Exercises 4 Standing Exercise Name sidestep, fwd, backward Resistance yellow Reps/Minutes 2 laps each direction 3 Standing Exercise Name forward lunges Reps/Minutes 2 x 10 Comments with SPC, cues for form 2 Standing Exercise Name squats Reps/Minutes 2 x 10 Comments holding onto rail, then no UE support Manual Therapy Treatment Soft Tissue Mobilization 1 Body Location Psoas Mobilization Type Strumming Sustained Pressure Intensity/Depth Deep Body Position Supine Manual Techniques 1 Type Hip flexor manual tissue elongation Body Position Supine PT-OP-R Modalities Start: 07/26/17 07:24 Freq: Status: Active Protocol: Document 08/12/17 11:15 AMB (Rec: 08/12/17 12:48 AMB [email or web address]) Hot Pack/Cold Pack Treatment Cold Pack Location R hip/ knee Patient Position Hooklying Treatment Duration (minutes) 10 Patient Tolerance Good PT-OP-T Assessment and Plan Start: 07/26/17 07:24 Freq: Status: Active Protocol: Document 08/12/17 11:15 AMB (Rec: 08/12/17 12:48 AMB [email or web address]) Physical Therapy Assessment Assessment Summary Assessment Better squat for but still stiff and needs cues to avoid excessive weightbearing on L. Physical Therapy Plan Next Visit Focus/Plan Next Note Type Treatment Note Next Visit Plan Progress gait/ balance Please Sign and Return: I have reviewed this Plan of Care and certify that the skilled therapy services above are required to meet the patient?s needs. Physician Signature Date Printed Name and Credentials Clinical Instructor Signature Printed Name and Credentials
--- NOTE | 2017-08-15 12:52 | PT.OTN ---
Current Diagnoses Unilateral primary osteoarthritis, right knee (08/15/17) Presence of right artificial hip joint (08/15/17) Physical Therapy Treatment Note PT-OP-A Visit Information Start: 07/26/17 07:24 Freq: Status: Active Protocol: Document 08/15/17 11:15 AMB (Rec: 08/15/17 11:23 AMB [id number]) Out-Patient Physical Therapy Visit Information Visit Information Visit Type Treatment Note Visit Start Time 11:15 Visit Stop Time 12:00 Total Visit Minutes 45 Visit Number 7 Evaluation Information Evaluation Date 07/26/17 PT-OP-B Current Condition Start: 07/26/17 07:24 Freq: Status: Active Protocol: Document 07/26/17 11:15 AMB (Rec: 07/26/17 16:11 AMB [email or web address]) Current Condition History of Current Condition History of Current Condition The patient had a RIGHT lateral approach total hip replacement at the end of April 2017. He had a history of hip pain for many years, with some right knee pain. After the hip replacement, his hip pain has been well controlled, but he started having knee pain. He had a cortisone injection on and per his report that has taken away the knee pain, but he continues to have numbness and weakness in the right knee. He is wearing an over the counter brace on his knee, because he the the knee has given out on occassion and is fearful of falling. 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 Roll over in bed without pain. Don socks independently. Move from sit to stand without pain. Walk without a limp/ SPC. Ascend and descend stairs with an alternating gait pattern. Prior Functional Status Baseline Function- ADL's Modified Independent Baseline Function- Mobility Modified Independent Baseline Function- Gait Previously used over the counter knee brace but not using AD. Baseline Function- Work/School Had coworkers help lift the really heavy stuff, but was able to stand for 8 hours. Current Functional Impairments (Reported) Functional Limitations- ADL's Unable to don socks. Functional Limitations- Mobility/Gait Uses SPC for short distances, 4WW for longer distances (in the community). Functional Limitations- Work/School Has not yet returned to work. 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 PT-OP-C Subjective Start: 07/26/17 07:24 Freq: Status: Active Protocol: Document 08/15/17 11:15 AMB (Rec: 08/15/17 11:23 AMB [id number]) OP-PT Subjective Patient Comments Patient Comments The patient reports posterior knee pain continues. PT-OP-G Mobility & Gait Start: 07/26/17 07:24 Freq: Status: Active Protocol: Document 07/26/17 11:15 AMB (Rec: 07/26/17 16:56 AMB [email or web address]) OP Mobility Evaluation Bed Mobility Rolling Pain and difficulty rolling OP Gait Assessment Gait Gait Assistance Required: Standby Assistance Assistive Devices Assistive Device Straight Cane Gait Deviations General Gait Pattern Antalgic Comments Gait Comments Decreased knee flexion with swing phase on the right. Fixed hip flexion, flat lumbar spine, lack of trunk rotation . PT-OP-J Posture/Palpation/Skin Start: 07/26/17 07:24 Freq: Status: Active Protocol: Document 07/26/17 11:15 AMB (Rec: 07/26/17 16:58 AMB [email or web address]) Posture Evaluation Position Standing Evaluation View Anterior Head/C-Spine Posture Forward Head Comments Posture Comments Fixed hip flexion in standing, flat lumbar spine. Palpation Assessment Location One Palpation Location R knee/ hip Palpation Findings Edema Palpation Details Mild swelling in popliteal fossa. No increase in pain with palpation of bony or soft tissue structures. Light touch sensation intact. PT-OP-K Range of Motion Start: 07/26/17 07:24 Freq: Status: Active Protocol: Document 07/26/17 11:15 AMB (Rec: 07/26/17 16:47 AMB [email or web address]) Hip Goniometric Range of Motion Hip Measured in Degrees Left Testing Position Supine Flexion w/Knee Flexed 100 Right Testing Position Supine Flexion w/Knee Flexed 85 Internal Rotation 10 External Rotation 15 Hip ROM Limitations Hip ROM Limitations Contracture Comments missing 35 degrees from neutral extension on the right , missing 10 degrees on the left Knee Goniometric Range of Motion Knee Measured in Degrees Right Patient Position Supine Flexion Passive (degrees) 115 Extension Passive (degrees) 2 PT-OP-M Strength Start: 05/15/18 07:24 Freq: Status: Active Protocol: Document 07/26/17 11:15 AMB (Rec: 07/26/17 16:47 AMB [email or web address]) Hip Strength Hip Manual Muscle Testing Left Flexion (L2) 4 Good Extension (S1) 4 Good Abduction 4 Good Right Flexion (L2) 4- Good- Extension (S1) 4- Good- Abduction 3+ Fair+ Comments pain with abduction Knee Strength Knee Manual Muscle Testing Left Flexion (S2) 4+ Good+ Extension (L3) 4+ Good+ Right Flexion (S2) 4 Good Extension (L3) 4 Good Ankle/Foot Strength Ankle and Foot Manual Muscle Testing Left Dorsiflexion (L4) 5 Normal Plantarflexion (S1) 5 Normal Right Dorsiflexion (L4) 5 Normal Plantarflexion (S1) 5 Normal PT-OP-Q Treatments Start: 07/26/17 07:24 Freq: Status: Active Protocol: Document 08/15/17 11:15 AMB (Rec: 08/15/17 11:42 AMB [id number]) Cardio Equipment Recumbent Stepper (Sci-Fit) Duration (Minutes) 6 Resistance 7 Seat Position 15 Gym Equipment Cable Column (Body Solid) Hip Abduction Resistance 3 plates Reps/Time 2x10 Leg Curl Resistance 6 plates Reps/Time 2x10 Leg Extension Resistance 7 plates Reps/Time 2x10 Therapeutic Exercises Supine Exercises 4 Supine Exercise Name hamstring stretch Side right Comments passive 3 Supine Exercise Name hip flexor stretch Side right Reps/Minutes 30 x 4 Sidelying Exercises 1 Sidelying Exercise Name Clam Shell Side right Equipment Used Pillow between legs Reps/Minutes 2x10 Manual Therapy Treatment Soft Tissue Mobilization 2 Body Location IT band Mobilization Type Sustained Pressure Intensity/Depth Moderate Body Position Supine 1 Body Location Psoas Mobilization Type Strumming Sustained Pressure Intensity/Depth Deep Body Position Supine PT-OP-R Modalities Start: 07/26/17 07:24 Freq: Status: Active Protocol: Document 08/15/17 11:15 AMB (Rec: 08/15/17 12:51 AMB [email or web address]) Hot Pack/Cold Pack Treatment Cold Pack Location R hip/ knee Patient Position Hooklying Treatment Duration (minutes) 10 Patient Tolerance Good PT-OP-T Assessment and Plan Start: 07/26/17 07:24 Freq: Status: Active Protocol: Document 08/15/17 11:15 AMB (Rec: 08/15/17 12:51 AMB [email or web address]) Physical Therapy Assessment Goals 4 Impairment Lifting Short Term Goal (STG) The patient will perform a partial squat without upper extremity support without loss of balance. STG Duration 4 weeks Retirement Goal (LTG) The patient will lift 20 pounds from the floor to waist height. LTG Duration 8 weeks 3 Impairment Gait Short Term Goal (STG) The patient will ambulate without assistive device without antalgia over smooth surfaces for 100 feet. STG Duration 4 weeks Supply Chain Coordinator Goal (LTG) The patient will ambulate in the community (hills, grass, gravel) for 20 minutes without LOB or an increase in pain. LTG Duration 8 weeks 2 Impairment Transfers Short Term Goal (STG) The patient will perform all bed mobility without increasing his pain or numbness. STG Duration 4 weeks Retirement Goal (LTG) The patient will move from sit to stand without an increase in pain or numbness. LTG Duration 8 weeks 1 Impairment ROM Short Term Goal (STG) The patient will improve his hip range of motion on the right to lacking 10 degrees. STG Duration 4 weeks Supply Chain Coordinator Goal (LTG) The patient will improve his knee and hip range of motion so that he can stand upright with good posture without his cane for 20 minutes without an increase in pain. LTG Duration 8 weeks Assessment Summary Assessment Good quad and hamstring strength, poor hip abductor strength continues. Physical Therapy Plan Frequency and Duration Frequency of Treatment 2x/Week Duration of Treatment 8 weeks Plan of Care Start Date 07/26/17 Plan of Care End Date 09/20/17 Next Visit Focus/Plan Next Note Type Treatment Note Next Visit Plan Progress hip stabilization, knee ROM Please Sign and Return: I have reviewed this Plan of Care and certify that the skilled therapy services above are required to meet the patient?s needs. Physician Signature Date Printed Name and Credentials Clinical Instructor Signature Printed Name and Credentials
--- NOTE | 2017-08-18 13:40 | PT.OTN ---
Current Diagnoses Unilateral primary osteoarthritis, right knee (08/18/17) Presence of right artificial hip joint (08/18/17) Physical Therapy Treatment Note PT-OP-A Visit Information Start: 07/26/17 07:24 Freq: Status: Active Protocol: Document 08/18/17 11:15 AMB (Rec: 08/18/17 11:40 AMB [email or web address]) Out-Patient Physical Therapy Visit Information Visit Information Visit Type Treatment Note Visit Start Time 11:15 Visit Stop Time 12:00 Total Visit Minutes 45 Visit Number 8 Evaluation Information Evaluation Date 07/26/17 PT-OP-B Current Condition Start: 07/26/17 07:24 Freq: Status: Active Protocol: Document 07/26/17 11:15 AMB (Rec: 07/26/17 16:11 AMB [email or web address]) Current Condition History of Current Condition History of Current Condition The patient had a RIGHT lateral approach total hip replacement at the end of April 2017. He had a history of hip pain for many years, with some right knee pain. After the hip replacement, his hip pain has been well controlled, but he started having knee pain. He had a cortisone injection on and per his report that has taken away the knee pain, but he continues to have numbness and weakness in the right knee. He is wearing an over the counter brace on his knee, because he the the knee has given out on occassion and is fearful of falling. 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 Roll over in bed without pain. Don socks independently. Move from sit to stand without pain. Walk without a limp/ SPC. Ascend and descend stairs with an alternating gait pattern. Prior Functional Status Baseline Function- ADL's Modified Independent Baseline Function- Mobility Modified Independent Baseline Function- Gait Previously used over the counter knee brace but not using AD. Baseline Function- Work/School Had coworkers help lift the really heavy stuff, but was able to stand for 8 hours. Current Functional Impairments (Reported) Functional Limitations- ADL's Unable to don socks. Functional Limitations- Mobility/Gait Uses SPC for short distances, 4WW for longer distances (in the community). Functional Limitations- Work/School Has not yet returned to work. 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 PT-OP-C Subjective Start: 07/26/17 07:24 Freq: Status: Active Protocol: Document 08/18/17 11:15 AMB (Rec: 08/18/17 11:40 AMB [id number]) OP-PT Subjective Patient Comments Patient Comments The patient reports he saw Dr Sheikh and he thinks he might have a meniscus tear in the right knee. PT-OP-G Mobility & Gait Start: 07/26/17 07:24 Freq: Status: Active Protocol: Document 07/26/17 11:15 AMB (Rec: 07/26/17 16:56 AMB [email or web address]) OP Mobility Evaluation Bed Mobility Rolling Pain and difficulty rolling OP Gait Assessment Gait Gait Assistance Required: Standby Assistance Assistive Devices Assistive Device Straight Cane Gait Deviations General Gait Pattern Antalgic Comments Gait Comments Decreased knee flexion with swing phase on the right. Fixed hip flexion, flat lumbar spine, lack of trunk rotation . PT-OP-J Posture/Palpation/Skin Start: 07/26/17 07:24 Freq: Status: Active Protocol: Document 07/26/17 11:15 AMB (Rec: 07/26/17 16:58 AMB [email or web address]) Posture Evaluation Position Standing Evaluation View Anterior Head/C-Spine Posture Forward Head Comments Posture Comments Fixed hip flexion in standing, flat lumbar spine. Palpation Assessment Location One Palpation Location R knee/ hip Palpation Findings Edema Palpation Details Mild swelling in popliteal fossa. No increase in pain with palpation of bony or soft tissue structures. Light touch sensation intact. PT-OP-K Range of Motion Start: 07/26/17 07:24 Freq: Status: Active Protocol: Document 07/26/17 11:15 AMB (Rec: 07/26/17 16:47 AMB [email or web address]) Hip Goniometric Range of Motion Hip Measured in Degrees Left Testing Position Supine Flexion w/Knee Flexed 100 Right Testing Position Supine Flexion w/Knee Flexed 85 Internal Rotation 10 External Rotation 15 Hip ROM Limitations Hip ROM Limitations Contracture Comments missing 35 degrees from neutral extension on the right , missing 10 degrees on the left Knee Goniometric Range of Motion Knee Measured in Degrees Right Patient Position Supine Flexion Passive (degrees) 115 Extension Passive (degrees) 2 PT-OP-M Strength Start: 07/26/17 07:24 Freq: Status: Active Protocol: Document 07/26/17 11:15 AMB (Rec: 07/26/17 16:47 AMB [email or web address]) Hip Strength Hip Manual Muscle Testing Left Flexion (L2) 4 Good Extension (S1) 4 Good Abduction 4 Good Right Flexion (L2) 4- Good- Extension (S1) 4- Good- Abduction 3+ Fair+ Comments pain with abduction Knee Strength Knee Manual Muscle Testing Left Flexion (S2) 4+ Good+ Extension (L3) 4+ Good+ Right Flexion (S2) 4 Good Extension (L3) 4 Good Ankle/Foot Strength Ankle and Foot Manual Muscle Testing Left Dorsiflexion (L4) 5 Normal Plantarflexion (S1) 5 Normal Right Dorsiflexion (L4) 5 Normal Plantarflexion (S1) 5 Normal PT-OP-Q Treatments Start: 07/26/17 07:24 Freq: Status: Active Protocol: Document 08/18/17 11:15 AMB (Rec: 08/18/17 13:39 AMB [email or web address]) Cardio Equipment Recumbent Stepper (Sci-Fit) Duration (Minutes) 6 Resistance 7 Seat Position 15 Gym Equipment Cable Column (Body Solid) Hip Abduction Resistance 3 plates Reps/Time 3x10 Therapeutic Exercises Supine Exercises 4 Supine Exercise Name hamstring stretch Side right Comments passive 3 Supine Exercise Name hip flexor stretch Side right Reps/Minutes 30 x 4 Prone Exercises 1 Prone Exercise Name Quadruped hip ext Side right Reps/Minutes 2 x 12 Sidelying Exercises 2 Sidelying Exercise Name SLR - Abduction Side right Reps/Minutes x10 Comments Pillow between legs Manual Therapy Treatment Soft Tissue Mobilization 1 Body Location Psoas Mobilization Type Strumming Sustained Pressure Intensity/Depth Deep Body Position Supine PT-OP-R Modalities Start: 07/26/17 07:24 Freq: Status: Active Protocol: Document 08/18/17 11:15 AMB (Rec: 08/18/17 13:39 AMB [email or web address]) Hot Pack/Cold Pack Treatment Cold Pack Location R hip/ knee Patient Position Hooklying Treatment Duration (minutes) 10 Patient Tolerance Good PT-OP-T Assessment and Plan Start: 07/26/17 07:24 Freq: Status: Active Protocol: Document 08/18/17 11:15 AMB (Rec: 08/18/17 13:39 AMB [email or web address]) Physical Therapy Assessment Assessment Summary Assessment Pt with back pain and posterior knee pain with sit to stand. Physical Therapy Plan Next Visit Focus/Plan Next Note Type Treatment Note Next Visit Plan Progress floor transfer if tolerated Please Sign and Return: I have reviewed this Plan of Care and certify that the skilled therapy services above are required to meet the patient?s needs. Physician Signature Date Printed Name and Credentials Clinical Instructor Signature Printed Name and Credentials
--- NOTE | 2017-08-23 12:56 | PT.OTN ---
Current Diagnoses Unilateral primary osteoarthritis, right knee (08/23/17) Presence of right artificial hip joint (08/23/17) Physical Therapy Treatment Note PT-OP-A Visit Information Start: 07/26/17 07:24 Freq: Status: Active Protocol: Document 08/23/17 11:15 AMB (Rec: 08/23/17 12:48 AMB [email or web address]) Out-Patient Physical Therapy Visit Information Visit Information Visit Type Treatment Note Visit Start Time 11:15 Visit Stop Time 12:00 Total Visit Minutes 45 Visit Number 9 Evaluation Information Evaluation Date 07/26/17 PT-OP-B Current Condition Start: 07/26/17 07:24 Freq: Status: Active Protocol: Document 07/26/17 11:15 AMB (Rec: 07/26/17 16:11 AMB [email or web address]) Current Condition History of Current Condition History of Current Condition The patient had a RIGHT lateral approach total hip replacement at the end of April 2017. He had a history of hip pain for many years, with some right knee pain. After the hip replacement, his hip pain has been well controlled, but he started having knee pain. He had a cortisone injection on and per his report that has taken away the knee pain, but he continues to have numbness and weakness in the right knee. He is wearing an over the counter brace on his knee, because he the the knee has given out on occassion and is fearful of falling. 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 Roll over in bed without pain. Don socks independently. Move from sit to stand without pain. Walk without a limp/ SPC. Ascend and descend stairs with an alternating gait pattern. Prior Functional Status Baseline Function- ADL's Modified Independent Baseline Function- Mobility Modified Independent Baseline Function- Gait Previously used over the counter knee brace but not using AD. Baseline Function- Work/School Had coworkers help lift the really heavy stuff, but was able to stand for 8 hours. Current Functional Impairments (Reported) Functional Limitations- ADL's Unable to don socks. Functional Limitations- Mobility/Gait Uses SPC for short distances, 4WW for longer distances (in the community). Functional Limitations- Work/School Has not yet returned to work. 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 PT-OP-C Subjective Start: 07/26/17 07:24 Freq: Status: Active Protocol: Document 08/23/17 11:15 AMB (Rec: 08/23/17 12:48 AMB [email or web address]) OP-PT Subjective Patient Comments Patient Comments Pt had an MRI of his knee yesterday PT-OP-G Mobility & Gait Start: 07/26/17 07:24 Freq: Status: Active Protocol: Document 07/26/17 11:15 AMB (Rec: 07/26/17 16:56 AMB [email or web address]) OP Mobility Evaluation Bed Mobility Rolling Pain and difficulty rolling OP Gait Assessment Gait Gait Assistance Required: Standby Assistance Assistive Devices Assistive Device Straight Cane Gait Deviations General Gait Pattern Antalgic Comments Gait Comments Decreased knee flexion with swing phase on the right. Fixed hip flexion, flat lumbar spine, lack of trunk rotation . PT-OP-J Posture/Palpation/Skin Start: 07/26/17 07:24 Freq: Status: Active Protocol: Document 07/26/17 11:15 AMB (Rec: 07/26/17 16:58 AMB [email or web address]) Posture Evaluation Position Standing Evaluation View Anterior Head/C-Spine Posture Forward Head Comments Posture Comments Fixed hip flexion in standing, flat lumbar spine. Palpation Assessment Location One Palpation Location R knee/ hip Palpation Findings Edema Palpation Details Mild swelling in popliteal fossa. No increase in pain with palpation of bony or soft tissue structures. Light touch sensation intact. PT-OP-K Range of Motion Start: 07/26/17 07:24 Freq: Status: Active Protocol: Document 07/26/17 11:15 AMB (Rec: 07/26/17 16:47 AMB [email or web address]) Hip Goniometric Range of Motion Hip Measured in Degrees Left Testing Position Supine Flexion w/Knee Flexed 100 Right Testing Position Supine Flexion w/Knee Flexed 85 Internal Rotation 10 External Rotation 15 Hip ROM Limitations Hip ROM Limitations Contracture Comments missing 35 degrees from neutral extension on the right , missing 10 degrees on the left Knee Goniometric Range of Motion Knee Measured in Degrees Right Patient Position Supine Flexion Passive (degrees) 115 Extension Passive (degrees) 2 PT-OP-M Strength Start: 05/15/18 07:24 Freq: Status: Active Protocol: Document 07/26/17 11:15 AMB (Rec: 07/26/17 16:47 AMB [email or web address]) Hip Strength Hip Manual Muscle Testing Left Flexion (L2) 4 Good Extension (S1) 4 Good Abduction 4 Good Right Flexion (L2) 4- Good- Extension (S1) 4- Good- Abduction 3+ Fair+ Comments pain with abduction Knee Strength Knee Manual Muscle Testing Left Flexion (S2) 4+ Good+ Extension (L3) 4+ Good+ Right Flexion (S2) 4 Good Extension (L3) 4 Good Ankle/Foot Strength Ankle and Foot Manual Muscle Testing Left Dorsiflexion (L4) 5 Normal Plantarflexion (S1) 5 Normal Right Dorsiflexion (L4) 5 Normal Plantarflexion (S1) 5 Normal PT-OP-Q Treatments Start: 07/26/17 07:24 Freq: Status: Active Protocol: Document 08/23/17 11:15 AMB (Rec: 08/23/17 12:48 AMB [email or web address]) Therapeutic Exercises Supine Exercises 4 Supine Exercise Name hamstring stretch Side right Comments passive 3 Supine Exercise Name hip flexor stretch Side right Reps/Minutes 30 x 4 Prone Exercises 1 Prone Exercise Name Quadruped hip ext Side right Reps/Minutes 2 x 12 Sidelying Exercises 2 Sidelying Exercise Name SLR - Abduction Side right Reps/Minutes x10 Comments Pillow between legs 1 Sidelying Exercise Name Clam Shell Side right Equipment Used Pillow between legs Reps/Minutes 2x10 Standing Exercises 5 Standing Exercise Name wall squat Reps/Minutes 5, 30 3 Standing Exercise Name forward lunges Reps/Minutes 2 x 10 Comments with SPC, cues for form 2 Standing Exercise Name squats Reps/Minutes 2 x 10 Comments holding onto rail, then no UE support Therapeutic Activity Therapeutic Activity 1 Name Floor transfer Comments with environmental support. SBA with Neuro Re-Education Treatment Balance Activities 1 Details Stride stance Comments EC PT-OP-R Modalities Start: 07/26/17 07:24 Freq: Status: Active Protocol: Document 08/23/17 11:15 AMB (Rec: 08/23/17 12:52 AMB [email or web address]) Hot Pack/Cold Pack Treatment Cold Pack Location R hip/ knee Patient Position Hooklying Treatment Duration (minutes) 10 Patient Tolerance Good PT-OP-T Assessment and Plan Start: 07/26/17 07:24 Freq: Status: Active Protocol: Document 08/23/17 11:15 AMB (Rec: 08/23/17 12:48 AMB [email or web address]) Physical Therapy Assessment Goals 4 Impairment Lifting Short Term Goal (STG) The patient will perform a partial squat without upper extremity support without loss of balance. STG Duration 4 weeks Correction Goal (LTG) The patient will lift 20 pounds from the floor to waist height. LTG Duration 8 weeks 3 Impairment Gait Short Term Goal (STG) The patient will ambulate without assistive device without antalgia over smooth surfaces for 100 feet. STG Duration 4 weeks Correction Goal (LTG) The patient will ambulate in the community (hills, grass, gravel) for 20 minutes without LOB or an increase in pain. LTG Duration 8 weeks 2 Impairment Transfers Short Term Goal (STG) The patient will perform all bed mobility without increasing his pain or numbness. STG Duration 4 weeks Correction Goal (LTG) The patient will move from sit to stand without an increase in pain or numbness. LTG Duration 8 weeks 1 Impairment ROM Short Term Goal (STG) The patient will improve his hip range of motion on the right to lacking 10 degrees. STG Duration 4 weeks Correction Goal (LTG) The patient will improve his knee and hip range of motion so that he can stand upright with good posture without his cane for 20 minutes without an increase in pain. LTG Duration 8 weeks Assessment Summary Assessment Posterior knee pain continues with sit to stand, but not with wall sits. Physical Therapy Plan Next Visit Focus/Plan Next Note Type Treatment Note Next Visit Plan G codes next visit Please Sign and Return: I have reviewed this Plan of Care and certify that the skilled therapy services above are required to meet the patient?s needs. Physician Signature Date Printed Name and Credentials Clinical Instructor Signature Printed Name and Credentials
--- NOTE | 2017-08-26 12:42 | PT.OTN ---
Current Diagnoses Unilateral primary osteoarthritis, right knee (08/26/17) Presence of right artificial hip joint (08/26/17) Physical Therapy Treatment Note PT-OP-A Visit Information Start: 07/26/17 07:24 Freq: Status: Active Protocol: Document 08/26/17 11:15 AMB (Rec: 08/26/17 11:29 AMB [id number]) Out-Patient Physical Therapy Visit Information Visit Information Visit Type Treatment Note Visit Start Time 11:15 Visit Stop Time 12:00 Total Visit Minutes 45 Visit Number 10 Evaluation Information Evaluation Date 07/26/17 PT-OP-B Current Condition Start: 07/26/17 07:24 Freq: Status: Active Protocol: Document 07/26/17 11:15 AMB (Rec: 07/26/17 16:11 AMB [email or web address]) Current Condition History of Current Condition History of Current Condition The patient had a RIGHT lateral approach total hip replacement at the end of April 2017. He had a history of hip pain for many years, with some right knee pain. After the hip replacement, his hip pain has been well controlled, but he started having knee pain. He had a cortisone injection on and per his report that has taken away the knee pain, but he continues to have numbness and weakness in the right knee. He is wearing an over the counter brace on his knee, because he the the knee has given out on occassion and is fearful of falling. 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 Roll over in bed without pain. Don socks independently. Move from sit to stand without pain. Walk without a limp/ SPC. Ascend and descend stairs with an alternating gait pattern. Prior Functional Status Baseline Function- ADL's Modified Independent Baseline Function- Mobility Modified Independent Baseline Function- Gait Previously used over the counter knee brace but not using AD. Baseline Function- Work/School Had coworkers help lift the really heavy stuff, but was able to stand for 8 hours. Current Functional Impairments (Reported) Functional Limitations- ADL's Unable to don socks. Functional Limitations- Mobility/Gait Uses SPC for short distances, 4WW for longer distances (in the community). Functional Limitations- Work/School Has not yet returned to work. 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 PT-OP-C Subjective Start: 07/26/17 07:24 Freq: Status: Active Protocol: Document 08/26/17 11:15 AMB (Rec: 08/26/17 11:29 AMB [id number]) OP-PT Subjective Patient Comments Patient Comments Wall squats do not cause pain. Going back to work on Tuesday . PT-OP-G Mobility & Gait Start: 07/26/17 07:24 Freq: Status: Active Protocol: Document 07/26/17 11:15 AMB (Rec: 07/26/17 16:56 AMB [email or web address]) OP Mobility Evaluation Bed Mobility Rolling Pain and difficulty rolling OP Gait Assessment Gait Gait Assistance Required: Standby Assistance Assistive Devices Assistive Device Straight Cane Gait Deviations General Gait Pattern Antalgic Comments Gait Comments Decreased knee flexion with swing phase on the right. Fixed hip flexion, flat lumbar spine, lack of trunk rotation . PT-OP-J Posture/Palpation/Skin Start: 07/26/17 07:24 Freq: Status: Active Protocol: Document 07/26/17 11:15 AMB (Rec: 07/26/17 16:58 AMB [email or web address]) Posture Evaluation Position Standing Evaluation View Anterior Head/C-Spine Posture Forward Head Comments Posture Comments Fixed hip flexion in standing, flat lumbar spine. Palpation Assessment Location One Palpation Location R knee/ hip Palpation Findings Edema Palpation Details Mild swelling in popliteal fossa. No increase in pain with palpation of bony or soft tissue structures. Light touch sensation intact. PT-OP-K Range of Motion Start: 07/26/17 07:24 Freq: Status: Active Protocol: Document 08/26/17 11:45 AMB (Rec: 08/26/17 11:53 AMB [id number]) Hip Goniometric Range of Motion Hip ROM Limitations Comments missing 5 degrees from neutral hip extension on the right. PT-OP-M Strength Start: 07/26/17 07:24 Freq: Status: Active Protocol: Document 07/26/17 11:15 AMB (Rec: 07/26/17 16:47 AMB [email or web address]) Hip Strength Hip Manual Muscle Testing Left Flexion (L2) 4 Good Extension (S1) 4 Good Abduction 4 Good Right Flexion (L2) 4- Good- Extension (S1) 4- Good- Abduction 3+ Fair+ Comments pain with abduction Knee Strength Knee Manual Muscle Testing Left Flexion (S2) 4+ Good+ Extension (L3) 4+ Good+ Right Flexion (S2) 4 Good Extension (L3) 4 Good Ankle/Foot Strength Ankle and Foot Manual Muscle Testing Left Dorsiflexion (L4) 5 Normal Plantarflexion (S1) 5 Normal Right Dorsiflexion (L4) 5 Normal Plantarflexion (S1) 5 Normal PT-OP-Q Treatments Start: 07/26/17 07:24 Freq: Status: Active Protocol: Document 08/26/17 11:15 AMB (Rec: 08/26/17 12:41 AMB [email or web address]) Cardio Equipment Recumbent Stepper (Sci-Fit) Duration (Minutes) 6 Resistance 7 Seat Position 15 Therapeutic Exercises Supine Exercises 4 Supine Exercise Name hamstring stretch Side right Comments passive 3 Supine Exercise Name hip flexor stretch Side right Reps/Minutes 30 x 4 1 Supine Exercise Name SLR Side right Comments 10 Standing Exercises 5 Standing Exercise Name wall squat Reps/Minutes 5, 30 2 Standing Exercise Name squats Reps/Minutes 2 x 10 Comments holding onto rail, then no UE support Therapeutic Activity Therapeutic Activity 2 Name work station set up Reps/Minutes 10 min Comments counter is short so Jey has to bend over at the waist, perpetuating lumbar/ hip issues, problem solved stance for balance/ body mechanics. Neuro Re-Education Treatment Balance Activities 1 Details Stride stance/ WBOS/ NBOS Comments EC PT-OP-R Modalities Start: 07/26/17 07:24 Freq: Status: Active Protocol: Document 08/26/17 11:15 AMB (Rec: 08/26/17 12:41 AMB [email or web address]) Hot Pack/Cold Pack Treatment Cold Pack Location R knee Patient Position Hooklying Treatment Duration (minutes) 10 Patient Tolerance Good PT-OP-T Assessment and Plan Start: 07/26/17 07:24 Freq: Status: Active Protocol: Document 08/26/17 11:15 AMB (Rec: 08/26/17 12:41 AMB [email or web address]) Physical Therapy Assessment Assessment Summary Assessment Good ROM improvement, pt giving standing hamstring stretch as HEP Physical Therapy Plan Frequency and Duration Frequency of Treatment 2x/Week Duration of Treatment 8 weeks Plan of Care Start Date 07/26/17 Plan of Care End Date 09/20/17 Next Visit Focus/Plan Next Note Type Treatment Note Next Visit Plan Follow up on return to work Please Sign and Return: I have reviewed this Plan of Care and certify that the skilled therapy services above are required to meet the patient?s needs. Physician Signature Date Printed Name and Credentials Clinical Instructor Signature Printed Name and Credentials
--- NOTE | 2017-08-29 14:00 | PT.OTN ---
Current Diagnoses Unilateral primary osteoarthritis, right knee (08/29/17) Presence of right artificial hip joint (08/29/17) Physical Therapy Treatment Note PT-OP-A Visit Information Start: 07/26/17 07:24 Freq: Status: Active Protocol: Document 08/29/17 11:15 AMB (Rec: 08/29/17 11:26 AMB [id number]) Out-Patient Physical Therapy Visit Information Visit Information Visit Type Treatment Note Visit Start Time 11:15 Visit Stop Time 12:00 Total Visit Minutes 45 Visit Number 10 Evaluation Information Evaluation Date 07/26/17 PT-OP-B Current Condition Start: 07/26/17 07:24 Freq: Status: Active Protocol: Document 07/26/17 11:15 AMB (Rec: 07/26/17 16:11 AMB [email or web address]) Current Condition History of Current Condition History of Current Condition The patient had a RIGHT lateral approach total hip replacement at the end of April 2017. He had a history of hip pain for many years, with some right knee pain. After the hip replacement, his hip pain has been well controlled, but he started having knee pain. He had a cortisone injection on and per his report that has taken away the knee pain, but he continues to have numbness and weakness in the right knee. He is wearing an over the counter brace on his knee, because he the the knee has given out on occassion and is fearful of falling. 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 Roll over in bed without pain. Don socks independently. Move from sit to stand without pain. Walk without a limp/ SPC. Ascend and descend stairs with an alternating gait pattern. Prior Functional Status Baseline Function- ADL's Modified Independent Baseline Function- Mobility Modified Independent Baseline Function- Gait Previously used over the counter knee brace but not using AD. Baseline Function- Work/School Had coworkers help lift the really heavy stuff, but was able to stand for 8 hours. Current Functional Impairments (Reported) Functional Limitations- ADL's Unable to don socks. Functional Limitations- Mobility/Gait Uses SPC for short distances, 4WW for longer distances (in the community). Functional Limitations- Work/School Has not yet returned to work. 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 PT-OP-C Subjective Start: 07/26/17 07:24 Freq: Status: Active Protocol: Document 08/29/17 11:15 AMB (Rec: 08/29/17 11:26 AMB [id number]) OP-PT Subjective Patient Comments Patient Comments Not back to work yet because not on the schedule. Still feels posterior knee pain with sit to stand PT-OP-G Mobility & Gait Start: 07/26/17 07:24 Freq: Status: Active Protocol: Document 07/26/17 11:15 AMB (Rec: 07/26/17 16:56 AMB [email or web address]) OP Mobility Evaluation Bed Mobility Rolling Pain and difficulty rolling OP Gait Assessment Gait Gait Assistance Required: Standby Assistance Assistive Devices Assistive Device Straight Cane Gait Deviations General Gait Pattern Antalgic Comments Gait Comments Decreased knee flexion with swing phase on the right. Fixed hip flexion, flat lumbar spine, lack of trunk rotation . PT-OP-J Posture/Palpation/Skin Start: 07/26/17 07:24 Freq: Status: Active Protocol: Document 07/26/17 11:15 AMB (Rec: 07/26/17 16:58 AMB [email or web address]) Posture Evaluation Position Standing Evaluation View Anterior Head/C-Spine Posture Forward Head Comments Posture Comments Fixed hip flexion in standing, flat lumbar spine. Palpation Assessment Location One Palpation Location R knee/ hip Palpation Findings Edema Palpation Details Mild swelling in popliteal fossa. No increase in pain with palpation of bony or soft tissue structures. Light touch sensation intact. PT-OP-K Range of Motion Start: 07/26/17 07:24 Freq: Status: Active Protocol: Document 08/26/17 11:45 AMB (Rec: 08/26/17 11:53 AMB [id number]) Hip Goniometric Range of Motion Hip ROM Limitations Comments missing 5 degrees from neutral hip extension on the right. PT-OP-M Strength Start: 07/26/17 07:24 Freq: Status: Active Protocol: Document 07/26/17 11:15 AMB (Rec: 07/26/17 16:47 AMB [email or web address]) Hip Strength Hip Manual Muscle Testing Left Flexion (L2) 4 Good Extension (S1) 4 Good Abduction 4 Good Right Flexion (L2) 4- Good- Extension (S1) 4- Good- Abduction 3+ Fair+ Comments pain with abduction Knee Strength Knee Manual Muscle Testing Left Flexion (S2) 4+ Good+ Extension (L3) 4+ Good+ Right Flexion (S2) 4 Good Extension (L3) 4 Good Ankle/Foot Strength Ankle and Foot Manual Muscle Testing Left Dorsiflexion (L4) 5 Normal Plantarflexion (S1) 5 Normal Right Dorsiflexion (L4) 5 Normal Plantarflexion (S1) 5 Normal PT-OP-Q Treatments Start: 07/26/17 07:24 Freq: Status: Active Protocol: Document 08/29/17 11:15 AMB (Rec: 08/29/17 13:04 AMB [email or web address]) Cardio Equipment Recumbent Elliptical (Biodex) Duration (Minutes) 7 Resistance 8 Gym Equipment Cable Column (Body Solid) Hip Abduction Resistance 3 plates Reps/Time 3x10 Therapeutic Exercises Supine Exercises 4 Supine Exercise Name hamstring stretch Side right Comments passive 3 Supine Exercise Name hip flexor stretch Side right Reps/Minutes 30 x 4 Sidelying Exercises 2 Sidelying Exercise Name SLR - Abduction Side right Reps/Minutes x10 Comments Pillow between legs Standing Exercises 2 Standing Exercise Name squats Reps/Minutes 2 x 10 Comments holding onto rail, then no UE support Therapeutic Activity Therapeutic Activity 3 Name sit to stand Reps/Minutes 5 Comments Pt with difficulty leaning forward. Able to stand up without assist wiht 4 foam on seat, needed Sujit for good form from regular seat height. PT-OP-R Modalities Start: 07/26/17 07:24 Freq: Status: Active Protocol: Document 08/29/17 11:15 AMB (Rec: 08/29/17 11:30 AMB [id number]) Hot Pack/Cold Pack Treatment Cold Pack Location R knee Patient Position Hooklying Treatment Duration (minutes) 10 Patient Tolerance Good PT-OP-T Assessment and Plan Start: 07/26/17 07:24 Freq: Status: Active Protocol: Document 08/29/17 11:15 AMB (Rec: 08/29/17 13:04 AMB [email or web address]) Physical Therapy Assessment Assessment Summary Assessment Leaning forward for good mechanics with sit to stand increases anterior hip pain. Pt continues to compensate for pain by putting more weight on L leg with sit to stand/ squat. Physical Therapy Plan Next Visit Focus/Plan Next Note Type Treatment Note Next Visit Plan Work on body mechanics of picking up items from the floor. Confidence with stair descent.
--- NOTE | 2017-09-05 16:09 | PT.OTN ---
Current Diagnoses Unilateral primary osteoarthritis, right knee (09/05/17) Presence of right artificial hip joint (09/05/17) Physical Therapy Treatment Note PT-OP-A Visit Information Start: 07/26/17 07:24 Freq: Status: Active Protocol: Document 09/05/17 11:15 AMB (Rec: 09/05/17 12:57 AMB [email or web address]) Out-Patient Physical Therapy Visit Information Visit Information Visit Type Treatment Note Visit Start Time 11:15 Visit Stop Time 12:10 Total Visit Minutes 55 Visit Number 12 Evaluation Information Evaluation Date 07/26/17 PT-OP-B Current Condition Start: 07/26/17 07:24 Freq: Status: Active Protocol: Document 07/26/17 11:15 AMB (Rec: 07/26/17 16:11 AMB [email or web address]) Current Condition History of Current Condition History of Current Condition The patient had a RIGHT lateral approach total hip replacement at the end of April 2017. He had a history of hip pain for many years, with some right knee pain. After the hip replacement, his hip pain has been well controlled, but he started having knee pain. He had a cortisone injection on and per his report that has taken away the knee pain, but he continues to have numbness and weakness in the right knee. He is wearing an over the counter brace on his knee, because he the the knee has given out on occassion and is fearful of falling. 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 Roll over in bed without pain. Don socks independently. Move from sit to stand without pain. Walk without a limp/ SPC. Ascend and descend stairs with an alternating gait pattern. Prior Functional Status Baseline Function- ADL's Modified Independent Baseline Function- Mobility Modified Independent Baseline Function- Gait Previously used over the counter knee brace but not using AD. Baseline Function- Work/School Had coworkers help lift the really heavy stuff, but was able to stand for 8 hours. Current Functional Impairments (Reported) Functional Limitations- ADL's Unable to don socks. Functional Limitations- Mobility/Gait Uses SPC for short distances, 4WW for longer distances (in the community). Functional Limitations- Work/School Has not yet returned to work. 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 PT-OP-C Subjective Start: 07/26/17 07:24 Freq: Status: Active Protocol: Document 09/05/17 11:15 AMB (Rec: 09/05/17 12:57 AMB [email or web address]) OP-PT Subjective Patient Comments Patient Comments Knee pain is getting better with walking, still feels it when stiff (getting out of bed ) PT-OP-G Mobility & Gait Start: 07/26/17 07:24 Freq: Status: Active Protocol: Document 07/26/17 11:15 AMB (Rec: 07/26/17 16:56 AMB [email or web address]) OP Mobility Evaluation Bed Mobility Rolling Pain and difficulty rolling OP Gait Assessment Gait Gait Assistance Required: Standby Assistance Assistive Devices Assistive Device Straight Cane Gait Deviations General Gait Pattern Antalgic Comments Gait Comments Decreased knee flexion with swing phase on the right. Fixed hip flexion, flat lumbar spine, lack of trunk rotation . PT-OP-J Posture/Palpation/Skin Start: 07/26/17 07:24 Freq: Status: Active Protocol: Document 07/26/17 11:15 AMB (Rec: 07/26/17 16:58 AMB [email or web address]) Posture Evaluation Position Standing Evaluation View Anterior Head/C-Spine Posture Forward Head Comments Posture Comments Fixed hip flexion in standing, flat lumbar spine. Palpation Assessment Location One Palpation Location R knee/ hip Palpation Findings Edema Palpation Details Mild swelling in popliteal fossa. No increase in pain with palpation of bony or soft tissue structures. Light touch sensation intact. PT-OP-K Range of Motion Start: 07/26/17 07:24 Freq: Status: Active Protocol: Document 08/26/17 11:45 AMB (Rec: 08/26/17 11:53 AMB [id number]) Hip Goniometric Range of Motion Hip ROM Limitations Comments missing 5 degrees from neutral hip extension on the right. PT-OP-M Strength Start: 07/26/17 07:24 Freq: Status: Active Protocol: Document 07/26/17 11:15 AMB (Rec: 07/26/17 16:47 AMB [email or web address]) Hip Strength Hip Manual Muscle Testing Left Flexion (L2) 4 Good Extension (S1) 4 Good Abduction 4 Good Right Flexion (L2) 4- Good- Extension (S1) 4- Good- Abduction 3+ Fair+ Comments pain with abduction Knee Strength Knee Manual Muscle Testing Left Flexion (S2) 4+ Good+ Extension (L3) 4+ Good+ Right Flexion (S2) 4 Good Extension (L3) 4 Good Ankle/Foot Strength Ankle and Foot Manual Muscle Testing Left Dorsiflexion (L4) 5 Normal Plantarflexion (S1) 5 Normal Right Dorsiflexion (L4) 5 Normal Plantarflexion (S1) 5 Normal PT-OP-Q Treatments Start: 07/26/17 07:24 Freq: Status: Active Protocol: Document 09/05/17 11:15 AMB (Rec: 09/05/17 16:07 AMB [email or web address]) Gym Equipment Shuttle Recovery Unilateral Squats Resistance 100# Shuttle Recovery Platform Stable Reps/Time 1x20 Bilateral Squats Details 100# Shuttle Recovery Platform Stable Reps/Time 2x20 Therapeutic Exercises Supine Exercises 4 Supine Exercise Name hamstring stretch Side right Comments passive 3 Supine Exercise Name hip flexor stretch Side right Reps/Minutes 30 x 4 Standing Exercises 2 Standing Exercise Name sit to stand Reps/Minutes 2 x 10 Comments lowering table, no UE support, vc forward trunk flexion Manual Therapy Treatment Soft Tissue Mobilization 1 Body Location Psoas Mobilization Type Strumming Sustained Pressure Intensity/Depth Deep Body Position Supine PT-OP-R Modalities Start: 07/26/17 07:24 Freq: Status: Active Protocol: Document 09/05/17 11:15 AMB (Rec: 09/05/17 16:07 AMB [email or web address]) Hot Pack/Cold Pack Treatment Cold Pack Location R hip Patient Position Hooklying Treatment Duration (minutes) 10 Patient Tolerance Good PT-OP-T Assessment and Plan Start: 07/26/17 07:24 Freq: Status: Active Protocol: Document 09/05/17 11:15 AMB (Rec: 09/05/17 16:07 AMB [email or web address]) Physical Therapy Assessment Goals 4 Impairment Lifting Short Term Goal (STG) The patient will perform a partial squat without upper extremity support without loss of balance. STG Duration 4 weeks Longterm Goal (LTG) The patient will lift 20 pounds from the floor to waist height. LTG Duration 8 weeks 3 Impairment Gait Short Term Goal (STG) The patient will ambulate without assistive device without antalgia over smooth surfaces for 100 feet. STG Duration 4 weeks Executive Business Coach Goal (LTG) The patient will ambulate in the community (hills, grass, gravel) for 20 minutes without LOB or an increase in pain. LTG Duration 8 weeks 2 Impairment Transfers Short Term Goal (STG) The patient will perform all bed mobility without increasing his pain or numbness. STG Duration 4 weeks Executive Business Coach Goal (LTG) The patient will move from sit to stand without an increase in pain or numbness. LTG Duration 8 weeks 1 Impairment ROM Short Term Goal (STG) The patient will improve his hip range of motion on the right to lacking 10 degrees. STG Duration 4 weeks Executive Business Coach Goal (LTG) The patient will improve his knee and hip range of motion so that he can stand upright with good posture without his cane for 20 minutes without an increase in pain. LTG Duration 8 weeks Assessment Summary Assessment no knee pain with tx today, but anterior hip pain with sit to stand, hip flexion is very tight. Physical Therapy Plan Frequency and Duration Frequency of Treatment 2x/Week Duration of Treatment 8 weeks Plan of Care Start Date 07/26/17 Plan of Care End Date 09/20/17 Next Visit Focus/Plan Next Note Type Treatment Note Next Visit Plan Pt seeing ortho surgeon on will discuss continue POC at that time.
--- NOTE | 2017-09-08 16:15 | PT.OTN ---
Current Diagnoses Unilateral primary osteoarthritis, right knee (09/08/17) Presence of right artificial hip joint (09/08/17) Physical Therapy Treatment Note PT-OP-A Visit Information Start: 07/26/17 07:24 Freq: Status: Active Protocol: Document 09/08/17 11:15 AMB (Rec: 09/08/17 11:22 AMB [id number]) Out-Patient Physical Therapy Visit Information Visit Information Visit Type Treatment Note Visit Start Time 11:15 Visit Stop Time 12:10 Total Visit Minutes 55 Visit Number 13 Evaluation Information Evaluation Date 07/26/17 PT-OP-B Current Condition Start: 07/26/17 07:24 Freq: Status: Active Protocol: Document 07/26/17 11:15 AMB (Rec: 07/26/17 16:11 AMB [email or web address]) Current Condition History of Current Condition History of Current Condition The patient had a RIGHT lateral approach total hip replacement at the end of April 2017. He had a history of hip pain for many years, with some right knee pain. After the hip replacement, his hip pain has been well controlled, but he started having knee pain. He had a cortisone injection on and per his report that has taken away the knee pain, but he continues to have numbness and weakness in the right knee. He is wearing an over the counter brace on his knee, because he the the knee has given out on occassion and is fearful of falling. 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 Roll over in bed without pain. Don socks independently. Move from sit to stand without pain. Walk without a limp/ SPC. Ascend and descend stairs with an alternating gait pattern. Prior Functional Status Baseline Function- ADL's Modified Independent Baseline Function- Mobility Modified Independent Baseline Function- Gait Previously used over the counter knee brace but not using AD. Baseline Function- Work/School Had coworkers help lift the really heavy stuff, but was able to stand for 8 hours. Current Functional Impairments (Reported) Functional Limitations- ADL's Unable to don socks. Functional Limitations- Mobility/Gait Uses SPC for short distances, 4WW for longer distances (in the community). Functional Limitations- Work/School Has not yet returned to work. 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 PT-OP-C Subjective Start: 07/26/17 07:24 Freq: Status: Active Protocol: Document 09/08/17 11:15 AMB (Rec: 09/08/17 11:22 AMB [id number]) OP-PT Subjective Patient Comments Patient Comments Intermittent knee pain that is mild. Tight thigh muscles today. PT-OP-G Mobility & Gait Start: 07/26/17 07:24 Freq: Status: Active Protocol: Document 07/26/17 11:15 AMB (Rec: 07/26/17 16:56 AMB [email or web address]) OP Mobility Evaluation Bed Mobility Rolling Pain and difficulty rolling OP Gait Assessment Gait Gait Assistance Required: Standby Assistance Assistive Devices Assistive Device Straight Cane Gait Deviations General Gait Pattern Antalgic Comments Gait Comments Decreased knee flexion with swing phase on the right. Fixed hip flexion, flat lumbar spine, lack of trunk rotation . PT-OP-J Posture/Palpation/Skin Start: 07/26/17 07:24 Freq: Status: Active Protocol: Document 07/26/17 11:15 AMB (Rec: 07/26/17 16:58 AMB [email or web address]) Posture Evaluation Position Standing Evaluation View Anterior Head/C-Spine Posture Forward Head Comments Posture Comments Fixed hip flexion in standing, flat lumbar spine. Palpation Assessment Location One Palpation Location R knee/ hip Palpation Findings Edema Palpation Details Mild swelling in popliteal fossa. No increase in pain with palpation of bony or soft tissue structures. Light touch sensation intact. PT-OP-K Range of Motion Start: 07/26/17 07:24 Freq: Status: Active Protocol: Document 09/08/17 11:15 AMB (Rec: 09/08/17 16:03 AMB [email or web address]) Hip Goniometric Range of Motion Hip Measured in Degrees Right Flexion w/Knee Flexed 85 Hip ROM Limitations Comments missing 15 degrees from neutral hip extension before stretching PT-OP-M Strength Start: 07/26/17 07:24 Freq: Status: Active Protocol: Document 09/08/17 11:15 AMB (Rec: 09/08/17 16:07 AMB [email or web address]) Hip Strength Hip Manual Muscle Testing Left Flexion (L2) 4+ Good+ Extension (S1) 4+ Good+ Abduction 4+ Good+ Right Flexion (L2) 4+ Good+ Extension (S1) 4+ Good+ Abduction 4 Good Knee Strength Knee Manual Muscle Testing Left Flexion (S2) 5 Normal Extension (L3) 5 Normal Right Flexion (S2) 5 Normal Extension (L3) 5 Normal PT-OP-Q Treatments Start: 07/26/17 07:24 Freq: Status: Active Protocol: Document 09/08/17 11:15 AMB (Rec: 09/08/17 11:23 AMB [id number]) Cardio Equipment Recumbent Elliptical (Biodex) Duration (Minutes) 6 Resistance 8 Therapeutic Exercises Supine Exercises 4 Supine Exercise Name hamstring stretch Side right Comments passive 3 Supine Exercise Name hip flexor stretch Side right Reps/Minutes 30 x 4 Therapeutic Activity Therapeutic Activity 4 Name picking up items from floor Reps/Minutes 10 min Comments Unable safely without UE support, good with UE support 3 Name sit to stand Reps/Minutes 20 Comments Better- able to stand with Sujit from regular height chair . Able to stand with 2 pillows underneath without UE or external support. Bending forward does increase hip pain , but not as bad as knee pain. PT-OP-R Modalities Start: 07/26/17 07:24 Freq: Status: Active Protocol: Document 09/05/17 11:15 AMB (Rec: 09/05/17 16:07 AMB [email or web address]) Hot Pack/Cold Pack Treatment Cold Pack Location R hip Patient Position Hooklying Treatment Duration (minutes) 10 Patient Tolerance Good PT-OP-T Assessment and Plan Start: 07/26/17 07:24 Freq: Status: Active Protocol: Document 09/08/17 11:15 AMB (Rec: 09/08/17 16:15 AMB [email or web address]) Physical Therapy Assessment Goals 4 Impairment Lifting Short Term Goal (STG) The patient will perform a partial squat without upper extremity support without loss of balance. PARTIALLY MET STG Duration 4 weeks Orthopedics Nurse Goal (LTG) The patient will lift 20 pounds from the floor to waist height. PARTIALLY MET LTG Duration 8 weeks 3 Impairment Gait Short Term Goal (STG) The patient will ambulate without assistive device without antalgia over smooth surfaces for 100 feet. STG Duration 4 weeks Half-Way Goal (LTG) The patient will ambulate in the community (hills, grass, gravel) for 20 minutes without LOB or an increase in pain. LTG Duration 8 weeks 2 Impairment Transfers Short Term Goal (STG) The patient will perform all bed mobility without increasing his pain or numbness. MET STG Duration 4 weeks Orthopedics Nurse Goal (LTG) The patient will move from sit to stand without an increase in pain or numbness. NOTMET, posterior knee pain continues with sit to stand, especially after sitting for an extended period of time. LTG Duration 8 weeks 1 Impairment ROM Short Term Goal (STG) The patient will improve his hip range of motion on the right to lacking 10 degrees. PARTIALLY MET (not met before stretching, met after) STG Duration 4 weeks Half-Way Goal (LTG) The patient will improve his knee and hip range of motion so that he can stand upright with good posture without his cane for 20 minutes without an increase in pain. MET LTG Duration 8 weeks Assessment Summary Assessment Pt is meeting with his orthopedist today to discuss his knee pain, after that meeting they will discuss continued PT. This may be difficult with his work schedule. They are hoping the orthopedist writes a letter clearing him to return to work . He continues to have posterior knee pain with sit to stand and continues to be stiff in his right hip that limits his sit to stand and squat. His range of motion and strength have improved well, but he still has a way to go before he returns to his full function. Physical Therapy Plan Next Visit Focus/Plan Next Note Type Treatment Note Next Visit Plan Continue vs d/c based on surgery plans.
--- NOTE | 2017-10-04 12:07 | PT.OPDS ---
Current Diagnoses Unilateral primary osteoarthritis, right knee (09/08/17) Presence of right artificial hip joint (09/08/17) Provider Visit Care Team Role Provider Type Lokesh Sheikh DO Attending Provider Non-Staff Specialty: Orthopedics Address: [address] [place] [address], [id number] Email: Visit Number Visit Number 13 Discharge Summary PT-OP-B Current Condition Start: 07/26/17 07:24 Freq: Status: Active Protocol: Document 07/26/17 11:15 AMB (Rec: 07/26/17 16:11 AMB [email or web address]) Current Condition History of Current Condition History of Current Condition The patient had a RIGHT lateral approach total hip replacement at the end of April 2017. He had a history of hip pain for many years, with some right knee pain. After the hip replacement, his hip pain has been well controlled, but he started having knee pain. He had a cortisone injection on and per his report that has taken away the knee pain, but he continues to have numbness and weakness in the right knee. He is wearing an over the counter brace on his knee, because he the the knee has given out on occasion and is fearful of falling. 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 Roll over in bed without pain. Don socks independently. Move from sit to stand without pain. Walk without a limp/ SPC. Ascend and descend stairs with an alternating gait pattern. Prior Functional Status Baseline Function- ADL's Modified Independent Baseline Function- Mobility Modified Independent Baseline Function- Gait Previously used over the counter knee brace but not using AD. Baseline Function- Work/School Had coworkers help lift the really heavy stuff, but was able to stand for 8 hours. Current Functional Impairments (Reported) Functional Limitations- ADL's Unable to don socks. Functional Limitations- Mobility/Gait Uses SPC for short distances, 4WW for longer distances (in the community). Functional Limitations- Work/School Has not yet returned to work. 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 PT-OP-C Subjective Start: 07/26/17 07:24 Freq: Status: Active Protocol: Document 09/08/17 11:15 AMB (Rec: 09/08/17 11:22 AMB [id number]) OP-PT Subjective Patient Comments Patient Comments Intermittent knee pain that is mild. Tight thigh muscles today. PT-OP-G Mobility & Gait Start: 07/26/17 07:24 Freq: Status: Active Protocol: Document 07/26/17 11:15 AMB (Rec: 07/26/17 16:56 AMB [email or web address]) OP Mobility Evaluation Bed Mobility Rolling Pain and difficulty rolling OP Gait Assessment Gait Gait Assistance Required: Standby Assistance Assistive Devices Assistive Device Straight Cane Gait Deviations General Gait Pattern Antalgic Comments Gait Comments Decreased knee flexion with swing phase on the right. Fixed hip flexion, flat lumbar spine, lack of trunk rotation . PT-OP-J Posture/Palpation/Skin Start: 07/26/17 07:24 Freq: Status: Active Protocol: Document 07/26/17 11:15 AMB (Rec: 07/26/17 16:58 AMB [email or web address]) Posture Evaluation Position Standing Evaluation View Anterior Head/C-Spine Posture Forward Head Comments Posture Comments Fixed hip flexion in standing, flat lumbar spine. Palpation Assessment Location One Palpation Location R knee/ hip Palpation Findings Edema Palpation Details Mild swelling in popliteal fossa. No increase in pain with palpation of bony or soft tissue structures. Light touch sensation intact. PT-OP-K Range of Motion Start: 07/26/17 07:24 Freq: Status: Active Protocol: Document 09/08/17 11:15 AMB (Rec: 09/08/17 16:03 AMB [email or web address]) Hip Goniometric Range of Motion Hip Measured in Degrees Right Flexion w/Knee Flexed 85 Hip ROM Limitations Comments missing 15 degrees from neutral hip extension before stretching PT-OP-M Strength Start: 07/26/17 07:24 Freq: Status: Active Protocol: Document 09/08/17 11:15 AMB (Rec: 09/08/17 16:07 AMB [email or web address]) Hip Strength Hip Manual Muscle Testing Left Flexion (L2) 4+ Good+ Extension (S1) 4+ Good+ Abduction 4+ Good+ Right Flexion (L2) 4+ Good+ Extension (S1) 4+ Good+ Abduction 4 Good Knee Strength Knee Manual Muscle Testing Left Flexion (S2) 5 Normal Extension (L3) 5 Normal Right Flexion (S2) 5 Normal Extension (L3) 5 Normal PT-OP-T Assessment and Plan Start: 07/26/17 07:24 Freq: Status: Active Protocol: Document 10/04/17 12:03 AMB (Rec: 10/04/17 12:07 AMB [email or web address]) Physical Therapy Assessment Assessment Summary Assessment The patient was seen for 12 visits for knee pain s/p hip replacement. He was planning on returning to work which is difficult due to a number of impairments (balance after cervical stenosis surgery) and continued stiffness in his hip, and pain in his knee. Overall his pain has improved, but he continues to get knee pain with sit to stand. He is quite tall and standing from low seated surfaces remains challenging. He remains unable to get enough hip flexion to do this without significant compensation. We left his case open for one month, but he has not followed up, so his is now discharged. He would be welcome to return in the future with a new prescription if needed.
== END 2017-10-19 16:34 ==
LOC: PHYS 11:15
PROVIDERS: Visit Provider Orthopaedic Surgery
DX: M17.11 Unilateral primary osteoarthritis, right knee (principal); Z96.641 Presence of right artificial hip joint
CPT/HCPCS: 97010; 97110; 97112; 97116; 97140; 97162; 97530

== ENCOUNTER → 2018-07-22 08:09 | Outpatient (CLI) | payer OTHER, SELFPAY ==
[2018-07-22 09:52] LABS: Alanine Aminotransferase 41 IU/L (21-72); Albumin 4.5 g/dL (3.5-5.0); Albumin Globulin Ratio 1.4 (1.0-2.8); Alkaline Phosphatase 105 U/L (38-126); Aspartate Aminotransferase 32 IU/L (17-59); BUN Creatinine Ratio 20.9 (6-22); Bilirubin Total 0.5 mg/dL (0.2-1.3); Blood Urea Nitrogen 23 mg/dL (9-20); Calcium 9.2 mg/dL (8.4-10.2); Carbon Dioxide 27 mmol/L (22-32); Chloride 102 mmol/L (98-107); Cholesterol 130 mg/dL (140-199); Estimated Glomerular Filt Rate > 60.0 mL/min (>60); Globulin 3.2 g/dL (1.7-4.1); Glucose 109 mg/dL (80-110); HDL Cholesterol 43 mg/dL (40-60); HEMOLYSIS < 15 (0-50); LDL Cholesterol Calculated 64 mg/dL (<100); Potassium 4.1 mmol/L (3.4-5.1); Sodium 140 mmol/L (137-145); Total Protein 7.7 g/dL (6.3-8.2); Triglycerides 114 mg/dL (35-150)
== END ==
PROVIDERS: PCP Internal Medicine; Visit Provider Internal Medicine
DX: E78.5 Hyperlipidemia, unspecified (principal); I10 Essential (primary) hypertension
CPT/HCPCS: 36415; 80053; 80061

== ENCOUNTER 2018-08-22 12:00 | Day surgery (SDC) | payer OTHER, SELFPAY ==
[2018-08-22] VITALS (8 sets, daily range): BP systolic 110–158; BP diastolic 68–84; PULSE 58–88; RESP 13–17; TEMP 36.1–36.8; O2SAT 97–100; BMI 32.0
--- NOTE | 2018-08-22 | PATH_ITS ---
[facility] Accession Number: [id number] . 01 Material submitted: . gastrointestinal site - RECTAL SIGMOID POLYP BIOPSY . 02 Diagnosis: Rectosigmoid Colon, Polyp, Biopsy: Hyperplastic polyp. [facility]/08/23/2018 . 02 Electronically signed: . Emily Gurrola MD, Pathologist NPI- [id number] . 01 Gross description: . RECTAL SIGMOID POLYP BIOPSY: Received in formalin are 2 fragment(s) of walters, soft tissue measuring 0.1 x 0.1 x 0.1 cm to 0.4 x 0.3 x 0.3 cm which is entirely submitted and submitted entirely in 1 cassette(s) /DMC /DMC . 02 Pathologist provided ICD-10: K63.5 . 02 CPT . 219658 Performed at: 01 [facility] [address] [id number] MD Ranjeet Max MD Phone: [phone] Performed at: 02 [facility] [address] [place], [place] [id number] MD Emily Gurrola MD Phone: [phone]
[2018-08-22] MEDS: SODIUM CHLORIDE 0.9% 1,000 ML 200 ML IV (12:51)
--- NOTE | 2018-08-22 14:00 | PM.HP.1 ---
History of Present Illness Date Patient Seen: 08/22/18 Time Patient Seen: 14:00 Chief complaint: [id number] Narrative: 62-year-old man with personal history of colon polyps presents for screening colonoscopy. Last 5 years ago No family history of colorectal cancer No family history of IBD Tolerated the prep well No intestinal complaints Patient History Medical History (Updated 08/21/18 @ 17:05 by Yossi Arguello MD) Hypertension (Chronic) Hyperlipidemia (Chronic) H/O adenomatous polyp of colon (Chronic ~2013) Balance problem (Chronic) Chronic constipation (Chronic ~1999) Chronic cough (Chronic ~2008) Gout (Chronic) Hearing loss (Chronic ~2016) Shoulder pain (Chronic ~2014) Constipation (Resolved) Dacosta's palsy (Inactive ~2016) Surgical History (Updated 07/23/18 @ 21:56 by Luna Le) Anesthesia (Resolved) History of ankle surgery (Resolved ~1998) History of hip replacement, total (Resolved) History of vasectomy (Inactive ~1994) S/P cervical spinal fusion (Inactive ~2009) Family History (Updated 07/23/18 @ 21:58 by Luna Le) Father Heart disease Hypertension High cholesterol Mother Heart disease Hypertension High cholesterol Stroke Family/Other Mental health problem Social History household members: spouse Smoking Status: Never smoker Family & Social History Social History: household members spouse Tobacco & Substance use: Smoking Status Never smoker Meds Home Medications Medication Instructions Recorded Confirmed Type nortriptyline 25 mg PO HS #0 03/29/17 08/22/18 History amlodipine 10 mg tablet 10 mg PO QDAY #0 tab 06/12/18 08/22/18 History aspirin 81 mg tablet,delayed 81 mg PO DAILY #0 tab 06/12/18 08/22/18 History release atorvastatin 40 mg tablet 40 mg PO QDAY #0 tab 06/12/18 08/22/18 History diphenhydramine 50 mg capsule 50 mg PO BEDTIME PRN 06/12/18 08/22/18 History hydrochlorothiazide 25 mg tablet 25 mg PO QDAY #0 tab 06/12/18 08/22/18 History lisinopril 40 mg tablet 40 mg PO QDAY #0 tab 06/12/18 08/22/18 History magnesium 200 mg tablet 400 mg PO DAILY tab 06/12/18 08/22/18 History Disabled Parking #1 each 08/21/18 Rx Allergies Allergy/AdvReac Type Severity Reaction Status Date / Time No Known Drug Allergies Allergy Verified 08/22/18 12:52 Review of Systems Constitutional Constitutional: Denies fever(s) Eyes Eyes: Denies bulging eyes ENT Ears, Nose, Mouth, and Throat: No lip swelling Cardiovascular Cardiovascular: Denies generalize swelling Respiratory Respiratory: Denies stridor Gastrointestinal Gastrointestinal: Denies coffee ground emesis Musculoskeletal Musculoskeletal: Denies loss of height Integumentary/Breasts Skin/Breast: Denies wounds Neurologic Neurologic: Denies abnormal speech and Denies confusion Psychiatric Psychiatric: Denies confusion Endocrine Endocrine: Denies deepening of the voice Hematologic/Lymphatic Hematologic/Lymphatic: Denies lymphadenopathy Allergic/Immunologic Allergic/Immunologic: Denies lip swelling Exam Vital Signs (past 8 hours): - 08/22/18 12:30 Temperature 98.2 F Pulse Rate 88 Respiratory Rate 15 Blood Pressure 158/84 H Pulse Oximetry 99 Oxygen Delivery Method Room Air Const General: cooperative and healthy appearing Orientation: alert HENMT Head: normal to inspection Nose: nares normal Mouth: oral mucosae normal and lip normal Eyes Eyelids: eyelids normal Conjunctivae: conjunctivae normal Sclera: sclerae normal Neck Neck: supple and other (No thyromegally) Chest Chest: other (LCTAB , regular respiratory effort) Cardio Rhythm: regular rhythm Heart Sounds: S1 normal, S2 normal, no gallops, no murmurs and no rubs GI Other: Abdomen soft nontender nondistended Skin General: no rashes or lesions noted Neuro General: alert and awake Psych Appearance: grossly normal Affect: normal affect Objective ECG Impression: 62-year-old man presents for his every 5 year screening colonoscopy Risks and benefits discussed. Risks including , perforation, hypoxia, missed lesion all discussed Patient ready to proceed
--- NOTE | 2018-08-22 14:51 | PM.OP.ENDO ---
Operative Date/Time/Diagnoses Date of procedure: 08/22/18 Time of procedure: 14:52 Pre-op diagnosis: Screening colonoscopy history of colon polyps Post-op diagnosis: same Procedure & Clinicians Study performed: Complete screening colonoscopy Polypectomy x2 at rectosigmoid junction using cold biopsy forceps Same procedure as scheduled: Yes Indications: 62-year-old man with history of colon polyps now greater than 5 years since last screening colonoscopy Surgeon: Ricardo Salinas Procedure Notes SCOAP/Timeout: Completed Procedure in detail: Patient was brought to the endoscopy suite, time-out was completed. He was sedated with fentanyl and midazolam for a total dose of 150 micro g and 7 mg respectively for the entire course of the procedure. A digital rectal exam was performed was not able to palpate what I think maybe a high-riding prostate. There were no polyps identified by palpation within the anal canal. 160 cm colonoscope was then introduced into the rectum and navigated the twist some folds of the colon. Of note the colon was quite redundant and took multiple forward and back attempts to reduce the numerous loops and to be able to obtain enough scope length to reach the cecum. The patient was ultimately late on his abdomen in prone position and is scope was able to advance as far as the cecum. Ileocecal valve, appendiceal orifice as well as the gross foot were each identified. Will colonoscope was then slowly withdrawn inspecting the mucosa. At the level of the rectosigmoid junction somewhat indistinct areas of prominent mucosa were identified -these were biopsied, I suspect the hamartomatous polyp. No other lesions identified including by retrospect flexing at the distal rectum. Rare sigmoid diverticula were identified. Prep was adequate Scope withdrawal time: 12min Sedation minutes: 45 Findings: diverticulosis and polyp Impression: 1) scattered sigmoid diverticula 2) rectosigmoid polyp x2 status post cold biopsy 3) quite redundant colon Recommendations: Colonscopy in 5 years Plan for aftercare: PACU and then home Follow up: as needed Disposition: PACU
[2018-08-22] MEDS: fentaNYL 250 MCG/5 ML INJ IV (14:53)
[2018-08-22] MEDS: MIDAZOLAM 5 MG/5 ML VIAL IV (14:54)
--- NOTE | 2018-08-22 14:58 | P.OP.ENDO_ITS ---
Operative Date/Time/Diagnoses Date of procedure: 08/22/18 Time of procedure: 14:52 Pre-op diagnosis: Screening colonoscopy history of colon polyps Post-op diagnosis: same Procedure & Clinicians Study performed: Complete screening colonoscopy Polypectomy x2 at rectosigmoid junction using cold biopsy forceps Same procedure as scheduled: Yes Indications: 62-year-old man with history of colon polyps now greater than 5 years since last screening colonoscopy Surgeon: Ricardo Salinas Procedure Notes SCOAP/Timeout: Completed Procedure in detail: Patient was brought to the endoscopy suite, time-out was completed. He was sedated with fentanyl and midazolam for a total dose of 150 micro g and 7 mg respectively for the entire course of the procedure. A digital rectal exam was performed was not able to palpate what I think maybe a high- riding prostate. There were no polyps identified by palpation within the anal canal. 160 cm colonoscope was then introduced into the rectum and navigated the twist some folds of the colon. Of note the colon was quite redundant and took multiple forward and back attempts to reduce the numerous loops and to be able to obtain enough scope length to reach the cecum. The patient was ultimately late on his abdomen in prone position and is scope was able to advance as far as the cecum. Ileocecal valve, appendiceal orifice as well as the gross foot were each identified. Will colonoscope was then slowly withdrawn inspecting the mucosa. At the level of the rectosigmoid junction somewhat indistinct areas of prominent mucosa were identified -these were biopsied, I suspect the anderson martomatous polyp. No other lesions identified including by retrospect flexing at the distal rectum. Rare sigmoid diverticula were identified. Prep was adequate Scope withdrawal time: 12min Sedation minutes: 45 Findings: diverticulosis and polyp Impression: 1) scattered sigmoid diverticula 2) rectosigmoid polyp x2 status post cold biopsy 3) quite redundant colon Recommendations: Colonscopy in 5 years Plan for aftercare: PACU and then home Follow up: as needed Disposition: PACU
--- NOTE | 2018-08-22 15:14 | SUR.PHASEI ---
Report given to Danielle Cortés RN. Pt continues to sleep . He will arouse when spoken to.
== END 2018-08-22 16:00 ==
LOC: ENDO 12:01
PROVIDERS: PCP Internal Medicine; Visit Provider Surgery
PROC: 0DJD8ZZ Inspection of Lower Intestinal Tract, Via Natural or Artificial Opening Endoscopic (ICD-10-PCS; CPT 45378; principal; 2018-08-22 13:15)
DX: Z86.010 Personal history of colon polyps (principal); K57.30 Diverticulosis of large intestine without perforation or abscess without bleeding; I10 Essential (primary) hypertension; E78.5 Hyperlipidemia, unspecified; K63.5 Polyp of colon
CPT/HCPCS: 45380; 99152; 99153; J2250; J3010

== ENCOUNTER → 2019-10-22 17:30 | Outpatient (CLI) | payer OTHER, SELFPAY ==
--- NOTE | 2019-10-22 17:39 | DI.MRI.S_ITS ---
PROCEDURE: MR LUMBAR SPINE WO CON INDICATIONS: Low back pain. Right hip and leg pain TECHNIQUE: Noncontrast sagittal T1 spin echo and T2 fast echo, sagittal STIR, axial T1 and T2 fast spin echo through the lumbar spine. In cases with scoliosis, additional coronal T2 fast spin echo may be performed. COMPARISON: None. FINDINGS: Image quality: Excellent. Alignment and Curvature: There is normal bony alignment. In the absence of plain films for comparison it is assumed that there are 5 non rib-bearing lumbar vertebral bodies, and that axial imaging was obtained from T12-L1 through L5-S1. Bone Marrow: Marrow is of normal overall signal. No acute vertebral body compression fractures. Spinal Cord: Conus medullaris terminates at the L2 level. Visualized cord demonstrates normal signal and size. Paraspinous Soft Tissues: No paravertebral masses. T12-L1: No canal stenosis or foraminal stenosis. L1-L2: Mild facet hypertrophy. No canal stenosis or foraminal stenosis. L2-L3: Facet hypertrophy. No canal stenosis or foraminal stenosis. L3-L4: Mild facet hypertrophy. No canal stenosis or foraminal stenosis. L4-L5: Mild disc bulge. Facet hypertrophy. Right foraminal disc bulge with mild to moderate right foraminal narrowing and mild flattening deformity on the exiting right L4 nerve root. L5-S1: Mild disc bulge. Facet hypertrophy. No canal stenosis. Mild to moderate right foraminal narrowing with mild flattening deformity on the exiting right L5 nerve root. IMPRESSION: 1. Please note the numbering system assumes 5 non rib-bearing lumbar vertebral bodies and that axial imaging was from T12-L1 through L5-S1. 2. Multilevel facet arthropathy. 3. No canal stenosis. 4. Mild to moderate right foraminal narrowing at L4-L5 and L5-S1 with mild flattening deformity on the exiting right L4 and L5 nerve roots. Dictated by: Cotlon Abdul M.D. on 10/23/2019 at 8:46 Approved by: Colton Abdul M.D. on 10/23/2019 at 8:51
== END ==
PROVIDERS: PCP Internal Medicine; Referring Provider Internal Medicine; Visit Provider Internal Medicine
DX: M54.5 Low back pain (principal); M25.551 Pain in right hip; M79.604 Pain in right leg; M47.816 Spondylosis without myelopathy or radiculopathy, lumbar region; M47.817 Spondylosis without myelopathy or radiculopathy, lumbosacral region; M48.061 Spinal stenosis, lumbar region without neurogenic claudication; M48.07 Spinal stenosis, lumbosacral region
CPT/HCPCS: 72148

== ENCOUNTER → 2020-01-01 20:40 | Outpatient (ROUT) | payer OTHER, SELFPAY | PROVIDERS: PCP Internal Medicine; Visit Provider Physician Assistant | DX: R39.9 Unspecified symptoms and signs involving the genitourinary system (principal); R10.9 Unspecified abdominal pain | CPT/HCPCS: 87086 ==

== ENCOUNTER → 2020-01-04 07:44 | Outpatient (CLI) | payer OTHER, SELFPAY ==
--- NOTE | 2020-01-04 | DI.US.S_ITS ---
PROCEDURE: US RENAL COMPLETE INDICATIONS: BILATERAL FLANK PAIN TECHNIQUE: Real-time scanning was performed of the kidneys and bladder, with image documentation. COMPARISON: None. FINDINGS: Kidneys: Kidneys are normal in size. Right kidney measures 11.7 cm long; left kidney measures 13.5 cm long. Right renal cortical thickness is 1.9 cm; left renal cortical thickness is 2.2 cm. Renal cortical echotexture is normal. No hydronephrosis or nephrolithiasis. No suspicious solid mass lesions. Bladder: Pre-void bladder volume is 325 mL. Post-void residual is equivalent, patient was unable to voluntarily void. Pre-void images demonstrate no intraluminal masses or stones. On pre-void images, neither ureteral jets are noted with color Doppler interrogation. (Of note, ureteral jets may not be detectable in up to 25% of cases due to insufficient differences in specific gravity between ureteral and bladder urine). Miscellaneous: No free pelvic fluid. IMPRESSION: There is a 4.6 cm maximal dimension superior right renal cortical cyst. On the left there is a 5.6 cm maximal dimension additional simple cyst but no hydronephrosis or nephrolithiasis is seen. 325 cc bladder volume, patient unable to voluntarily void. Dictated by: Ronaldo Nelson M.D. on 01/04/2020 at 9:36 Approved by: Ronaldo Nelson M.D. on 01/04/2020 at 9:39
== END ==
PROVIDERS: PCP Internal Medicine; Referring Provider Physician Assistant; Visit Provider Physician Assistant
DX: R10.9 Unspecified abdominal pain (principal); N28.1 Cyst of kidney, acquired
CPT/HCPCS: 76770

== ENCOUNTER → 2020-01-11 19:10 | Outpatient (ROUT) | payer OTHER, SELFPAY ==
[2020-01-11 19:37] LABS: BUN Creatinine Ratio 19.2 (6-22); Blood Urea Nitrogen 19 mg/dL (9-20); Calcium 9.6 mg/dL (8.4-10.2); Carbon Dioxide 31 mmol/L (22-32); Chloride 105 mmol/L (98-107); Estimated Glomerular Filt Rate > 60.0 mL/min (>60); Glucose 125 mg/dL (80-110); HEMOLYSIS < 15 (0-50); Potassium 4.4 mmol/L (3.4-5.1); Sodium 142 mmol/L (137-145)
[2020-01-11 19:39] LABS: Hemoglobin A1C% w Est Avg Glu 6.9 % (4.0-6.0)
[2020-01-11 20:07] LABS: Prostate Specific Antigen 0.596 ng/mL (0.10-4.00)
== END ==
PROVIDERS: PCP Internal Medicine; Visit Provider Internal Medicine
DX: N40.1 Benign prostatic hyperplasia with lower urinary tract symptoms (principal)
CPT/HCPCS: 80048; 83036; 84153

== ENCOUNTER → 2020-05-28 19:37 | Outpatient (ROUT) | payer OTHER, SELFPAY ==
[2020-05-28 19:59] LABS: Aspartate Aminotransferase 28 IU/L (17-59); BUN Creatinine Ratio 16.1 (6-22); Blood Urea Nitrogen 20 mg/dL (9-20); Calcium 9.8 mg/dL (8.4-10.2); Carbon Dioxide 31 mmol/L (22-32); Chloride 101 mmol/L (98-107); Cholesterol 124 mg/dL (140-199); Estimated Glomerular Filt Rate 58.3 mL/min (>60); Glucose 122 mg/dL (80-110); HDL Cholesterol 36 mg/dL (40-60); HEMOLYSIS < 15 (0-50); LDL Cholesterol Calculated 55 mg/dL (<100); Sodium 139 mmol/L (137-145); Triglycerides 166 mg/dL (35-150)
[2020-05-28 20:01] LABS: Hemoglobin A1C% w Est Avg Glu 7.4 % (4.0-6.0)
== END ==
PROVIDERS: PCP Internal Medicine; Visit Provider Internal Medicine
DX: I10 Essential (primary) hypertension (principal); E78.2 Mixed hyperlipidemia
CPT/HCPCS: 80048; 80061; 83036; 84450

== ENCOUNTER 2021-12-14 10:34 | Emergency (ER) | payer OTHER, SELFPAY ==
[2021-12-14] VITALS (19 sets, daily range): BP systolic 158–181; BP diastolic 77–87; PULSE 63–85; RESP 12–23; TEMP 36.5–36.6; O2SAT 95–100
--- NOTE | 2021-12-14 10:48 | DI.CT.S_ITS ---
PROCEDURE: CT ANGIO HEAD AND NECK INDICATIONS: stroke TECHNIQUE: Noncontrast images were performed earlier in the day and not repeated. After the administration of intravenous contrast, 1 mm thick sections acquired from the aortic arch through the [place]esh-[place] of Stark. Post-contrast 4.5 mm thick sections then re-acquired from the foramen magnum to the vertex. 3-dimensional ovrntmg-kdrpzeitn-xghvillkmj (MIP) and/or volume rendering reformats were acquired of the central intracranial vasculature and neck separately. For radiation dose reduction, the following was used: automated exposure control, adjustment of mA and/or kV according to patient size. COMPARISON: [facility], US, US CAROTID DPLX DOPPLER BILAT, 04/19/2016, 15:14. [facility], MR, STROKE PROTOCOL (PNL), 03/03/2011, 8:40. [facility], CT, CT BRAIN WO CON, 01/27/2016, 7:26. [facility], CT, BRAIN (TPA), 02/03/2016, 7:58. [facility], CT, CT STROKE, 12/14/2021, 10:59. [facility], CT, BRAIN (TPA), 03/02/2011, 21:48. FINDINGS: Image quality: Excellent. BRAIN: CSF spaces: Ventricles are normal in size and shape. Basal cisterns are patent. No extra-axial fluid collections. Brain: No midline shift. No intracranial bleeds or masses. Colvin-white matter interface appears intact. Skull and face: Calvarium and facial bones appear intact, without suspicious lesions. Orbits appear normal. In this patient with this given history of left-sided facial droop, scrutiny is given to the course of the left facial nerve, including within the left parotid gland. To the limits of CT, no significant abnormality is seen. Sinuses: Sinuses and mastoids are clear. HEAD CT ANGIOGRAPHY: Anterior circulation: Intracranial internal carotid arteries are normal in size and flow. The flow within the paired anterior cerebral arteries is normal and symmetric. The flow within the middle cerebral arteries is normal and symmetric. The anterior communicating artery is seen. No aneurysms are seen. Posterior circulation: Visualized portions of the vertebral arteries demonstrate normal caliber, and join to form a normal appearing basilar artery. Flow within the posterior cerebral arteries is normal and symmetric. No aneurysms are seen. NECK CT ANGIOGRAPHY: Carotid system: Incidental note is made of a common origin of the right brachiocephalic artery and the left common carotid artery (bovine type arch). This is considered to be a developmental variant of no clinical consequence. The origins of the common carotid arteries appear patent. The common carotid arteries demonstrate normal caliber and courses. The bifurcation regions are both widely patent. The internal carotid arteries demonstrate normal calibers and courses. Posterior circulation: The origins of the vertebral arteries are within normal limits. The more superior extracranial portions of both vertebral arteries also demonstrate normal courses and calibers. They join to form a normal appearing basilar artery. Soft tissues: Visualized neck soft tissues demonstrate no suspicious abnormalities. Bones: No suspicious bony lesions. Visualized cervical spine appears normally aligned. Anterior fixation hardware can be seen C3 through C7. One of the C7 screws is noted to be proud as on series 9, image 114 and on series 11, image 62. Ossification of the posterior longitudinal ligament can be seen, as demonstrated on series 11, image 62. Moderate to severe central canal narrowing can be seen at several cervical levels. IMPRESSION: No imaging explanation is found for this patient's presenting symptoms. No significant intracranial arterial abnormality is seen. Within the arteries of the neck, no hemodynamically significant stenosis can be seen. C3 through C7 anterior fixation hardware. One of the C7 screws is proud. 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 Incidental note is made of: Bovine type aortic branching pattern Any quantitative measurements of stenosis were performed using NASCET criteria. Dictated by: Shane Restrepo M.D. on 12/14/2021 at 10:44 Approved by: Shane Restrepo M.D. on 12/14/2021 at 10:50
--- NOTE | 2021-12-14 10:48 | DI.CT.S_ITS ---
PROCEDURE: CT STROKE INDICATIONS: 66-year-old man with left-sided numbness and facial droop. TECHNIQUE: Noncontrast 4.5 mm thick angled axial sections acquired from the foramen magnum to the vertex, with coronal reformats. For radiation dose reduction, the following was used: automated exposure control, adjustment of mA and/or kV according to patient size. COMPARISON: [facility], MR, MR STROKE PROTOCOL, 02/03/2016, 18:27. [facility], CT, BRAIN (TPA), 03/02/2011, 21:48. FINDINGS: Image quality: Excellent. CSF spaces: Basal cisterns are patent. No extra-axial fluid collections. The ventricles are symmetric in size and shape. Brain: No intracranial bleeds or masses. There are old lacunar infarcts or dilated perivascular space in basal ganglia bilaterally. There is mild cerebral volume loss for age, with resultant ventricular and sulcal prominence. There are mild periventricular and deep white matter chronic small vessel ischemic changes. There is intracranial internal carotid artery atherosclerosis. Skull and face: Calvarium and visualized facial bones appear intact, without suspicious lesions. Sinuses: Visualized sinuses and mastoids are clear. IMPRESSION: 1. No acute intracranial abnormalities. 2. Cerebral volume loss and chronic microvascular ischemic changes. The result was discussed with Dr. Maria in ER on 12/14/2021 at 1120 hours. This study fulfills neurological imaging criteria for inclusion or exclusion of acute stroke therapies based on available published neurological guidelines. Dictated by: Jigar Peters M.D. on 12/14/2021 at 11:16 Approved by: Jigar Peters M.D. on 12/14/2021 at 11:23
--- NOTE | 2021-12-14 11:03 | ED.GENADULT ---
HPI - General Adult General Chief complaint: Neuro Symptoms/Deficit Stated complaint: face numbness, drooling left side Time Seen by Provider: 12/14/21 10:47 History of Present Illness HPI narrative: 66-year-old gentleman with a history of diabetes, hypertension, hyperlipidemia, lower extremity edema on diuretic with history of Dacosta's palsy 2 times previously presents with concerns for stroke. Acute onset at 10:25 a.m. this morning. His had just left he was brushing his teeth and noticed that the water was falling out of the left side of his mouth. He called his immediately and she turned around and brought him to the hospital and he arrived at 10:49 a.m. Related Data Home Medications Medication Instructions Recorded Confirmed nortriptyline 25 mg capsule 25 mg PO HS ##0 03/29/17 08/22/18 amlodipine 10 mg tablet 10 mg PO QDAY #0 tabs 06/12/18 12/14/21 aspirin 81 mg tablet,delayed 81 mg PO DAILY #0 tabs 06/12/18 12/14/21 release atorvastatin 40 mg tablet (Lipitor) 40 mg PO QDAY #0 tabs 06/12/18 12/14/21 diphenhydramine HCl 50 mg capsule 50 mg PO BEDTIME PRN Sleep 06/12/18 08/22/18 lisinopril 40 mg tablet 40 mg PO QDAY #0 tabs 06/12/18 12/14/21 magnesium 200 mg tablet 400 mg PO DAILY 06/12/18 08/22/18 Previous Rx's Medication Instructions Recorded Disabled Parking #1 ea 08/21/18 hydrochlorothiazide 25 mg tablet 25 mg PO QDAY #90 tabs 09/21/18 Allergies Allergy/AdvReac Type Severity Reaction Status Date / Time No Known Drug Allergies Allergy Verified 12/14/21 11:06 Review of Systems Review of Systems Narrative: Pertinent positive and negative findings as per HPI Remainder of review of systems is otherwise unremarkable for Constitutional: ?Fevers, chills, weakness ENT: ?No sore throat, chronic neck pain is unchanged, ear pain CV: ?Chest pain, palpitations, dyspnea on exertion Respiratory: ?Cough, wheeze, dyspnea GI: ?Nausea, vomiting, diarrhea, change in bowel habits, black or bloody stools : ?Dysuria, hematuria, flank pain MS: ?Muscle weakness, numbness, joint swelling or warmth Skin: ?Small lesion on the back of his right thigh unchanged, no additional Rashes, nonhealing lesions Neuro: ?Syncope, dizziness, tingling Psych: ?Depression, anxiety, suicidal ideation Endocrine: ?Fatigue, heat or cold intolerance, very dry skin Chronic lower extremity edema is unchanged, peripheral neuropathy unchanged Patient History Medical History Balance problem Dacosta's palsy (~2016) Chronic constipation (~1999) Chronic cough (~2008) Constipation Gout H/O adenomatous polyp of colon (~2013) Hearing loss (~2016) Hyperlipidemia Hypertension Shoulder pain (~2014) Surgical History Anesthesia History of ankle surgery (~1998) History of hip replacement, total History of vasectomy (~1994) S/P cervical spinal fusion (~2009) Family History Father Heart disease Hypertension High cholesterol Mother Heart disease Hypertension High cholesterol Stroke Family/Other Mental health problem Social History household members: spouse Smoking Status: Never smoker Smoking Status: Never smoker Exam Initial Vital Signs Initial Vital Signs: Vital Signs Temperature 98 F 12/14/21 10:35 Pulse Rate 81 12/14/21 10:35 Respiratory Rate 17 12/14/21 10:35 Blood Pressure 171/83 H 12/14/21 10:35 Pulse Oximetry 100 12/14/21 10:35 Oxygen Delivery Method 12/14/21 10:35 General: Healthy appearing, slightly slowed but in no acute distress. Able to give a complete and coherent history. Well-nourished well-developed HEENT: Moist mucous membranes, normal sclera with reactive pupils, no sensation to the left side of his tongue, when protruded tongue deviates to the left Neck: No JVD, supple. Surgical scarring on the right side Respiratory: Lungs are clear to auscultation, no wheezing no rales no rhonchi. Full and symmetrical air movement Cardiac: Regular rate and rhythm no murmurs no bruits Abdomen: Soft, nontender, good bowel tones, no flank pain Skin: Warm and dry, no rashes, 2 cm superficial skin wound on the back his right thigh without cellulitis or abscess Neurologic: Mild facial droop, mild dysarthria, left-sided hemianopia, Extremities: No trauma, well perfused, minor lower extremity edema, compression socks in place. Superficial tenderness to both feet at baseline Psych: Cooperative, appropriate insight and affect 6 points NIH Stroke Scale INPUTS: 1A: Level of consciousness ?> 1 = Arouses to minor stimulation 1B: Ask month and age ?> 0 = Both questions right 1C: 'Blink eyes' & 'squeeze hands' ?> 0 = Performs both tasks 2: Horizontal extraocular movements ?> 0 = Normal 3: Visual miles ?> 1 = Partial hemianopia 4: Facial palsy ?> 1 = Minor paralysis (flat nasolabial fold, smile asymmetry) 5A: Left arm motor drift ?> 0 = No drift for 10 seconds 5B: Right arm motor drift ?> 0 = No drift for 10 seconds 6A: Left leg motor drift ?> 0 = No drift for 5 seconds 6B: Right leg motor drift ?> 0 = No drift for 5 seconds 7: Limb Ataxia ?> 0 = No ataxia 8: Sensation ?> 1 = Mild-moderate loss: less sharp/more dull 9: Language/aphasia ?> 1 = Mild-moderate aphasia: some obvious changes, without significant limitation 10: Dysarthria ?> 1 = Mild-moderate dysarthria: slurring but can be understood 11: Extinction/inattention ?> 0 = No abnormality Course Orders Ordered: ED Orders 12/14/21 10:[address] angio head and neck Stat Urine Drug Screen, Rapid Stat EKG-12 Lead Stat 12/14/21 11:14 Complete Blood Count AUTO DIFF Stat Comprehensive Metabolic Panel Stat Partial Thromboplastin Time Stat Prothrombin Time INR Stat Troponin & CK Cardiac Panel Stat 12/14/21 11:40 COVID19 -Nasal RAPID/Pre-Proc Stat Sodium Chloride (Normal Saline 0.9%) 1,000 mls @ 150 mls/hr IV CONT RESHMA Last Admin: 12/14/21 12:00 Dose: 150 mls/hr Documented By: MERLYN Discontinued Medications Alteplase, Recombinant (Activase) 9 mg in 9 mls @ 540 mls/hr IV NOW ONE Stop: 12/14/21 12:00 Last Infusion: 12/14/21 11:53 Dose: 0 mls/hr Documented By: Admin: 12/14/21 11:52 Dose: 540 mls/hr Documented By: MERLYN Alteplase, Recombinant (Activase) 81 mg in 81 mls @ 81 mls/hr IV NOW ONE Stop: 12/14/21 12:58 Last Infusion: 12/14/21 13:01 Dose: 0 mls/hr Documented By: Admin: 12/14/21 11:55 Dose: 81 mls/hr Documented By: MERLYN Lidocaine HCl (Lidocaine 2% (Glydo) 6 Ml Gel) 6 ml TOP NOW ONE Stop: 12/14/21 13:39 Ondansetron HCl (Ondansetron 4 Mg/2 Ml Inj) 4 mg IV NOW ONE Stop: 12/14/21 13:06 Last Admin: 12/14/21 13:20 Dose: 4 mg Documented By: MERLYN Vital Signs Vital signs: Vital Signs - 8 hr 12/14/21 10:35 12/14/21 11:04 12/14/21 11:18 Temperature 98 F Pulse Rate 81 75 Respiratory Rate 17 14 Blood Pressure 171/83 H 166/79 H Pulse Oximetry 100 99 Oxygen Delivery Method Room Air 12/14/21 11:18 12/14/21 11:28 12/14/21 11:28 Temperature Pulse Rate 76 70 Respiratory Rate 12 Blood Pressure 160/77 H Pulse Oximetry 98 99 Oxygen Delivery Method 12/14/21 11:30 12/14/21 11:30 12/14/21 11:48 Temperature Pulse Rate 71 72 Respiratory Rate 17 21 Blood Pressure 160/77 H Pulse Oximetry 95 100 Oxygen Delivery Method 12/14/21 11:48 12/14/21 11:50 12/14/21 11:50 Temperature Pulse Rate 73 Respiratory Rate 18 Blood Pressure 172/81 H 165/81 H Pulse Oximetry 99 Oxygen Delivery Method 12/14/21 11:55 12/14/21 11:55 12/14/21 12:00 Temperature Pulse Rate 76 Respiratory Rate 15 Blood Pressure 171/86 H 168/87 H Pulse Oximetry 99 Oxygen Delivery Method 12/14/21 12:00 12/14/21 12:05 12/14/21 12:05 Temperature Pulse Rate 73 71 Respiratory Rate 12 18 Blood Pressure 166/87 H Pulse Oximetry 99 98 Oxygen Delivery Method Room Air 12/14/21 12:15 12/14/21 12:15 12/14/21 12:30 Temperature Pulse Rate 66 Respiratory Rate 13 Blood Pressure 158/81 H 169/80 H Pulse Oximetry 99 Oxygen Delivery Method Room Air 12/14/21 12:30 12/14/21 12:45 12/14/21 12:45 Temperature Pulse Rate 64 68 Respiratory Rate 15 17 Blood Pressure 181/85 H Pulse Oximetry 96 97 Oxygen Delivery Method 12/14/21 12:50 12/14/21 12:50 12/14/21 13:00 Temperature Pulse Rate 63 Respiratory Rate 12 Blood Pressure 164/77 H 162/83 H Pulse Oximetry 97 Oxygen Delivery Method 12/14/21 13:00 12/14/21 13:15 12/14/21 13:15 Temperature Pulse Rate 78 76 Respiratory Rate 22 18 Blood Pressure 171/85 H Pulse Oximetry 98 Oxygen Delivery Method 12/14/21 13:30 Temperature 97.7 F Pulse Rate 83 Respiratory Rate 23 Blood Pressure 166/81 H Pulse Oximetry 98 Oxygen Delivery Method Room Air Medical Decision Making Lab Data Result diagrams: 12/14/21 11:14 12/14/21 11:14 Labs: Lab Results 12/14/21 12/14/21 12/14/21 Range/Units 11:14 11:14 11:14 WBC 4.4 L (4.5-11.0) X10^3/uL RBC 2.98 L (4.5-5.9) X10^6/uL Hgb 8.7 L (13.5-17.5) g/dL Hct 27.0 L (41-53) % MCV 90.7 (80-100) fL MCH 29.3 (26-34) PG MCHC 32.3 (30-36) % RDW 15.1 H (11.6-14.8) % Plt Count 156 (150-400) X10^3/uL Neut % (Auto) 60.7 (50-75) % Lymph % (Auto) 28.3 (25-40) % [place] % (Auto) 8.8 (3-14) % Eos % (Auto) 1.7 L (2-4) % Baso % (Auto) 0.5 (0-2) % Neut # (Auto) 2600 (5946-0214) /uL Lymph # (Auto) 1200 (1096-3973) /uL [place] # (Auto) 400 (0-900) /uL Eos # (Auto) 100 (0-450) /uL Baso # (Auto) 0 (0-100) /uL PT 13.2 H (10.1-12.7) SECONDS INR 1.2 (0.9-1.3) APTT 29 (26-36) SECONDS Sodium 140 (137-145) mmol/L Potassium 4.3 (3.4-5.1) mmol/L Chloride 107 (98-107) mmol/L Carbon Dioxide 25 (22-32) mmol/L BUN 14 (9-20) mg/dL Creatinine 0.74 (0.66-1.25) mg/dL Estimated GFR > 60 (>60) mL/min BUN/Creatinine Ratio 18.9 (6-22) Glucose 133 H (80-110) mg/dL Calcium 7.5 L (8.4-10.2) mg/dL Total Bilirubin 1.1 (0.2-1.3) mg/dL AST 39 (17-59) IU/L ALT 34 (<50) IU/L Alkaline Phosphatase 51 (38-126) U/L Total Creatine Kinase 93 (55-170) U/L CK-MB (CK-2) TNP CK-MB (CK-2) Rel Index TNP Troponin I 0.013 (0.01-0.034) ng/mL Total Protein 7.2 (6.3-8.2) g/dL Albumin 3.9 (3.5-5.0) g/dL Globulin 3.3 (1.7-4.1) g/dL Albumin/Globulin Ratio 1.2 (1.0-2.8) SARS-CoV-2 (PCR) (Negative) 12/14/21 Range/Units 11:40 WBC (4.5-11.0) X10^3/uL RBC (4.5-5.9) X10^6/uL Hgb (13.5-17.5) g/dL Hct (41-53) % MCV (80-100) fL MCH (26-34) PG MCHC (30-36) % RDW (11.6-14.8) % Plt Count (150-400) X10^3/uL Neut % (Auto) (50-75) % Lymph % (Auto) (25-40) % [place] % (Auto) (3-14) % Eos % (Auto) (2-4) % Baso % (Auto) (0-2) % Neut # (Auto) (8373-5410) /uL Lymph # (Auto) (3996-0307) /uL [place] # (Auto) (0-900) /uL Eos # (Auto) (0-450) /uL Baso # (Auto) (0-100) /uL PT (10.1-12.7) SECONDS INR (0.9-1.3) APTT (26-36) SECONDS Sodium (137-145) mmol/L Potassium (3.4-5.1) mmol/L Chloride (98-107) mmol/L Carbon Dioxide (22-32) mmol/L BUN (9-20) mg/dL Creatinine (0.66-1.25) mg/dL Estimated GFR (>60) mL/min BUN/Creatinine Ratio (6-22) Glucose (80-110) mg/dL Calcium (8.4-10.2) mg/dL Total Bilirubin (0.2-1.3) mg/dL AST (17-59) IU/L ALT (<50) IU/L Alkaline Phosphatase (38-126) U/L Total Creatine Kinase (55-170) U/L CK-MB (CK-2) CK-MB (CK-2) Rel Index Troponin I (0.01-0.034) ng/mL Total Protein (6.3-8.2) g/dL Albumin (3.5-5.0) g/dL Globulin (1.7-4.1) g/dL Albumin/Globulin Ratio (1.0-2.8) SARS-CoV-2 (PCR) Negative (Negative) Point of Care Testing Stool Occult Blood Negative Glucose POC 128 Point of care testing: Point of Care Testing Stool Occult Blood Negative Glucose POC [address] scan - head: Radiologist's Impression: FINDINGS:? Image quality:? Excellent.? ? CSF spaces:? Basal cisterns are patent.? No extra-axial fluid collections.? The ventricles are symmetric in size and shape.? ? Brain:? No intracranial bleeds or masses.? There are old lacunar infarcts or dilated perivascular space in basal ganglia bilaterally.? There is mild cerebral volume loss for age, with resultant ventricular and sulcal prominence.? There are mild periventricular and deep white matter chronic small vessel ischemic changes.? There is intracranial internal carotid artery atherosclerosis.? ? Skull and face:? Calvarium and visualized facial bones appear intact, without suspicious lesions.? ? Sinuses:? Visualized sinuses and mastoids are clear.? ? IMPRESSION:? ? 1. No acute intracranial abnormalities. ? 2. Cerebral volume loss and chronic microvascular ischemic changes. ? The result was discussed with Dr. Maria in ER on 12/14/2021 at 1120 hours. ? This study fulfills neurological imaging criteria for inclusion or exclusion of acute stroke therapies based on available published neurological guidelines.? ? ? Dictated by: Jigar Peters M.D. on 12/14/2021 at 11:16 ? ? Head neck CTA: Radiologist's Impression: FINDINGS: Image quality: Excellent. BRAIN: CSF spaces: Ventricles are normal in size and shape. Basal cisterns are patent. No extra-axial fluid collections. Brain: No midline shift. No intracranial bleeds or masses. Colvin-white matter interface appears intact. Skull and face: Calvarium and facial bones appear intact, without suspicious lesions. Orbits appear normal. In this patient with this given history of left-sided facial droop, scrutiny is given to the course of the left facial nerve, including within the left parotid gland. To the limits of CT, no significant abnormality is seen. Sinuses: Sinuses and mastoids are clear. HEAD CT ANGIOGRAPHY: Anterior circulation: Intracranial internal carotid arteries are normal in size and flow. The flow within the paired anterior cerebral arteries is normal and symmetric. The flow within the middle cerebral arteries is normal and symmetric. The anterior communicating artery is seen. No aneurysms are seen. Posterior circulation: Visualized portions of the vertebral arteries demonstrate normal caliber, and join to form a normal appearing basilar artery. Flow within the posterior cerebral arteries is normal and symmetric. No aneurysms are seen. NECK CT ANGIOGRAPHY: Carotid system: Incidental note is made of a common origin of the right brachiocephalic artery and the left common carotid artery (bovine type arch). This is considered to be a developmental variant of no clinical consequence. The origins of the common carotid arteries appear patent. The common carotid arteries demonstrate normal caliber and courses. The bifurcation regions are both widely patent. The internal carotid arteries demonstrate normal calibers and courses. Posterior circulation: The origins of the vertebral arteries are within normal limits. The more superior extracranial portions of both vertebral arteries also demonstrate normal courses and calibers. They join to form a normal appearing basilar artery. Soft tissues: Visualized neck soft tissues demonstrate no suspicious abnormalities. Bones: No suspicious bony lesions. Visualized cervical spine appears normally aligned. Anterior fixation hardware can be seen C3 through C7. One of the C7 screws is noted to be proud as on series 9, image 114 and on series 11, image 62. Ossification of the posterior longitudinal ligament can be seen, as demonstrated on series 11, image 62. Moderate to severe central canal narrowing can be seen at several cervical levels. IMPRESSION: No imaging explanation is found for this patient's presenting symptoms. No significant intracranial arterial abnormality is seen. Within the arteries of the neck, no hemodynamically significant stenosis can be seen. C3 through C7 anterior fixation hardware. One of the C7 screws is proud. 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 Incidental note is made of: Bovine type aortic branching pattern Any quantitative measurements of stenosis were performed using NASCET criteria. Dictated by: Shane Restrepo M.D. on 12/14/2021 at 10:44 ECG Data Interpretation: Sinus rhythm at a rate of 74 Poor baseline normal axis No acute ischemic changes MDM Narrative Medical decision making narrative: 66-year-old gentleman with last known well at 10:25 a.m. this morning Initial exam is at 10:49 a.m., some difficulty with IV access once access was obtained CT scan with CTA was done On return from CT scan and 2nd Neurologic exam seems to have more progressive dysarthria and confusion. Radiology returns phone call with unremarkable plain head CT at 11:22 a.m. Patient is re-examined. His symptoms seem to be progressing with less alertness, more dysarthria and expressive aphasia. Discussed pros and cons of tPA with patient and his . They would like to proceed with tPA 11:40 spoke with stroke neurologist, Dr Roach 11:47 decision made to administer tPA. Pharmacist at bedside, verbal order given 11:52 Initial bolus started 11:58 Dr Link confirms [facility] will accept the patient in transfer. Anemia was noted to be low on initial blood work. This was noted prior to giving tPA. He was questioned regarding bleeding signs or symptoms. There has been no black stools, change to stools, obvious blood loss and he is unaware of prior blood work to suggest anemia. He is guaiac negative 1242 asked by RN to evaluate intraoral bleeding. He has of missing 1st molar on upper left side with some gingival bleeding around the canine. This is minimal. Gauze is used for compression. There is no evidence of additional lesions or bleeding from his nose. Ground transport to arrive at 130 today At time of transfer he is continuing to have some periodontal bleeding, Leigh catheter was placed for urinary retention with a L of fluid in his bladder. Minimal change to his neurologic symptoms and certainly not worse. Critical Care Time Critical Care Time Critical Care Time: Yes Total Critical Care Time: 37 Attestation: Critical care time is separate from other billable procedures. There is a high probability of a significant, sudden or life-threatening deterioration that requires my full and direct attention, intervention and personal management. This critical care time includes consultation with family and other consulting doctors, review of records, and interpretation of data from labs, EKGs and imaging as well as managements of acute neurologic deficit, administration of IV tPA, consultation with additional providers. Patient is excepted at [facility] for post tPA care of his acute stroke. Ground transport is arranged Discharge Plan Departure Patient Disposition: [facility] Clinical Impression: Acute stroke due to ischemia Prescriptions: No Action nortriptyline 25 MG capsule 25 mg PO HS Qty: 0 hydrochlorothiazide 25 mg tablet 25 mg PO QDAY Qty: 90 3RF amlodipine 10 mg tablet 10 mg PO QDAY Qty: 0 atorvastatin [Lipitor] 40 mg tablet 40 mg PO QDAY Qty: 0 lisinopril 40 mg tablet 40 mg PO QDAY Qty: 0 aspirin 81 mg tablet,delayed release (DR/EC) 81 mg PO DAILY Qty: 0 magnesium 200 mg tablet 400 mg PO DAILY diphenhydramine HCl 50 mg capsule 50 mg PO BEDTIME PRN (Reason: Sleep) (DME) Disabled Parking Qty: 1 0RF Rx Instructions: Patient qualifies for disabled parking as per the attached form. Referrals: Vasiliy Nieves MD [Primary Care Provider] -
[2021-12-14 11:17] LABS: Add Manual Diff / Slide Review NO; Basophils Absolute Auto 0 /uL (0-100); Basophils Percent Auto 0.5 % (0-2); Eosinophils Absolute Auto 100 /uL (0-450); Eosinophils Percent Auto 1.7 % (2-4); Hemoglobin 8.7 g/dL (13.5-17.5); Lymphocytes Absolute Auto 1200 /uL (1100-4500); Lymphocytes Percent Auto 28.3 % (25-40); Mean Corpuscular HGB Conc 32.3 % (30-36); Mean Corpuscular Hemoglobin 29.3 PG (26-34); Mean Corpuscular Volume 90.7 fL (80-100); Monocytes Absolute Auto 400 /uL (0-900); Monocytes Percent Auto 8.8 % (3-14); Neutrophils Absolute Auto 2600 /uL (1500-7000); Neutrophils Percent Auto 60.7 % (50-75); Platelet Count 156 X10^3/uL (150-400); Red Blood Cell Count 2.98 X10^6/uL (4.5-5.9); Red Cell Distribution Width 15.1 % (11.6-14.8); White Blood Cell Count 4.4 X10^3/uL (4.5-11.0)
[2021-12-14 11:23] LABS: INR 1.2 (0.9-1.3); Prothrombin Time 13.2 SECONDS (10.1-12.7)
[2021-12-14 11:26] LABS: PTT Partial Thromboplastin Tim 29 SECONDS (26-36)
[2021-12-14 11:28] LABS: Alanine Aminotransferase 34 IU/L (<50); Albumin 3.9 g/dL (3.5-5.0); Albumin Globulin Ratio 1.2 (1.0-2.8); Alkaline Phosphatase 51 U/L (38-126); Aspartate Aminotransferase 39 IU/L (17-59); BUN Creatinine Ratio 18.9 (6-22); Bilirubin Total 1.1 mg/dL (0.2-1.3); Blood Urea Nitrogen 14 mg/dL (9-20); Calcium 7.5 mg/dL (8.4-10.2); Carbon Dioxide 25 mmol/L (22-32); Chloride 107 mmol/L (98-107); Creatine Kinase 93 U/L (55-170); Estimated Glomerular Filt Rate > 60 mL/min (>60); Globulin 3.3 g/dL (1.7-4.1); Glucose 133 mg/dL (80-110); Potassium 4.3 mmol/L (3.4-5.1); Sodium 140 mmol/L (137-145); Total Protein 7.2 g/dL (6.3-8.2)
[2021-12-14 11:30] LABS: HEMOLYSIS 238 (0-50)
--- NOTE | 2021-12-14 11:36 | PC.NURSE ---
Telecart in room
[2021-12-14 11:39] LABS: Troponin I 0.013 ng/mL (0.01-0.034)
[2021-12-14] MEDS: ALTEPLASE 9 MG/9 ML VIAL 540 MG IV (11:52)
[2021-12-14] MEDS: ALTEPLASE 81 MG/81 ML VIAL IV (11:55)
[2021-12-14] MEDS: SODIUM CHLORIDE 0.9% 1,000 ML 150 ML IV (12:00)
[2021-12-14 12:10] LABS: COVID19 -Nasal RAPID Negative (Negative)
--- NOTE | 2021-12-14 12:30 | PC.NURSE ---
Pt has old blister to lower lateral right thigh, healing, no drainage, pain to palpation. Barrier cream applied with relief of itching per pt.
--- NOTE | 2021-12-14 12:42 | PC.NURSE ---
Pt obsewrved to have bleeding in the mouth. Dr Boothe called to bedside. Appears to by bleeding from the gums. Pt's mouth packed with gauze. TPA continues to be infused per Dr Boothe. Pt reports a small improvement on parasthesia sx of left side.
--- NOTE | 2021-12-14 13:18 | PC.NURSE ---
Swallow screen deferred d/t pt's bleeding gum, pt is managing secretions but pt requires gauze in mouth to absorb the bleeding. Gauze changed every 5-10 min. Pt has oral suction that he is using.
[2021-12-14] MEDS: ONDANSETRON 4 MG/2 ML INJ IV (13:20)
--- NOTE | 2021-12-14 13:22 | PC.NURSE ---
Pt's speech is more clear, pt reports a decreas in the parasthesis but still not the same on both sides.
--- NOTE | 2021-12-14 13:22 | PC.NURSE ---
patient had some swelling above the IV site on his left forearm. Dr. Boothe notified and ordered to keep the IV in place. Dr. Boothe ordered to place an aaliyah wrap around the site and to not use the IV at this time. primary RN aware.
--- NOTE | 2021-12-14 13:33 | PC.NURSE ---
Verified meds with just prior to transport Tamsulosin 0.4 mg cap po x 1 daily po Lisinopril 40 mg tab x 1 daily po metformin 500 mg tab x 1 bid po amlodipine 10 mg po x 1daily po atorvastatin 40 mg x 1 daily po nortriptyline 25 mg 25 mg daily po hydrochlorothiazide 25 mg x 1 daily po furosemide 20 mg x 1 daily po
--- NOTE | 2021-12-14 13:45 | PC.NURSE ---
Pt able to stand up and urinate after second attempt. Pt refused jones
== END 2021-12-14 14:32 | disposition short-term general hospital (02) ==
PROVIDERS: Emergency Provider Emergency Medicine; PCP Internal Medicine
DX: I63.9 Cerebral infarction, unspecified (principal); R33.8 Other retention of urine; K13.79 Other lesions of oral mucosa; Z20.822 Contact with and (suspected) exposure to COVID-19
CPT/HCPCS: 36415; 51798; 70450; 70496; 70498; 80053; 81003; 82272; 82550; 82962; 84484; 85025; 85610; 85730; 87635; 93005; 96365; 96375; 99285; 99291; 99292; C9803; J2405; J2997; Q9967

== ENCOUNTER → 2022-09-01 11:15 | Outpatient (CLI) | payer OTHER, SELFPAY ==
--- NOTE | 2022-09-01 | DI.MRI.S_ITS ---
PROCEDURE: MR HEAD/BRAIN WO CON INDICATIONS: Other amnesia TECHNIQUE: Non-contrast axial T1 spin echo, axial T2 fast spin echo, sagittal and axial FLAIR, coronal T2 fast spin echo, axial gradient echo, axial diffusion and ADC through the brain. COMPARISON: [facility], MR, STROKE PROTOCOL (PNL), 03/03/2011, 8:40. [facility], MR, MR STROKE PROTOCOL, 02/03/2016, 18:27. [facility], CT, CT STROKE, 12/14/2021, 10:59. FINDINGS: Image quality: This examination is limited by involuntary motion artifact. CSF spaces: Ventricles appear symmetric in size and shape. Basal cisterns are patent. No extra-axial fluid collections. Brain: No intracranial mass effects. Hemosiderin staining can be seen along the surface of the brain, particularly anteriorly and medially. There is cerebral volume loss for age. There are periventricular and deep white matter chronic small vessel ischemic changes. Brainstem appears normal. Diffusion-weighted images show no acute ischemic insults. No chronic ischemic insults. Normal intravascular flow voids are present. Skull and face: Calvarial bone marrow is normal in signal. Orbits are normal. Sinuses: Minimal generalized mucosal thickening can be seen within the paranasal sinuses. No abnormal fluid is seen within the mastoid air cells. IMPRESSION: Likely superficial cirrhosis. Otherwise, no significant intracranial abnormality for age. Dictated by: Shane Restrepo M.D. on 09/01/2022 at 11:24 Approved by: Shane Restrepo M.D. on 09/01/2022 at 11:28
== END ==
PROVIDERS: PCP Student in an Organized Health Care Education/Training Program; Referring Provider Internal Medicine; Visit Provider Internal Medicine
DX: R41.3 Other amnesia (principal)
CPT/HCPCS: 70551

== ENCOUNTER → 2022-09-23 14:24 | Outpatient (CLI) | payer OTHER, SELFPAY ==
--- NOTE | 2022-09-23 14:36 | DI.RAD.S_ITS ---
PROCEDURE: XR FOOT RT MIN 3V INDICATIONS: Non-healing wound x 1 year over right anterior ankle TECHNIQUE: 3 views of the foot were acquired. COMPARISON: None. FINDINGS: Bones: No fractures or dislocations. No suspicious bony lesions. Mild periarticular osteophyte formation at the 1st metatarsophalangeal joint. Sclerosis within the proximal aspects of the proximal phalanxes of the 4th and 5th digits. Soft tissues: No tibiotalar joint effusion. Achilles tendon appears normal. IMPRESSION: 1. Osteoarthritis. 2. Indeterminate sclerosis within the 4th and 5th digits. This could be further assessed with MRI with and without intravenous contrast, if clinically indicated. Dictated by: Sammie Galvez M.D. on 09/23/2022 at 16:24 Approved by: Sammie Galvez M.D. on 09/23/2022 at 16:25
== END ==
PROVIDERS: PCP Student in an Organized Health Care Education/Training Program; Referring Provider Physician Assistant; Visit Provider Physician Assistant
DX: L98.9 Disorder of the skin and subcutaneous tissue, unspecified (principal)
CPT/HCPCS: 73630; 87070; 87075; 87077; 87186; 87205

== ENCOUNTER → 2022-09-24 10:01 | Outpatient (CLI) | payer OTHER, SELFPAY ==
--- NOTE | 2022-09-24 10:03 | DI.RAD.S_ITS ---
PROCEDURE: XR KNEE LT 3V INDICATIONS: bilateral chronic knee pain TECHNIQUE: 3 views of the knee were acquired. COMPARISON: [facility], CR, XR KNEE ARTHRITIC SERIES RT, 08/17/2017, 15:16. FINDINGS: Bones: No fractures or dislocations. No suspicious bony lesions. There is mild tricompartmental periarticular osteophyte formation. Soft tissues: No joint effusion. No suspicious soft tissue calcifications. IMPRESSION: Osteoarthritis. No acute fracture. No osseous lesion. If symptoms and/or clinical suspicion for pathology persist, further assessment with repeat, or advanced imaging (e.g., CT, MRI, or bone scan) may be helpful for further assessment. Dictated by: Sammie Glavez M.D. on 09/24/2022 at 13:25 Approved by: Sammie Galvez M.D. on 09/24/2022 at 13:26
--- NOTE | 2022-09-24 10:03 | DI.RAD.S_ITS ---
PROCEDURE: XR KNEE RT 3V INDICATIONS: bilateral chronic knee pain TECHNIQUE: 3 views of the knee were acquired. COMPARISON: [facility], CR, XR KNEE ARTHRITIC SERIES RT, 08/17/2017, 15:16. FINDINGS: Bones: No fractures or dislocations. No suspicious bony lesions. Chronic appearing exostosis involving the proximal aspect of the right medial tibia is unchanged. There is mild tricompartmental periarticular osteophyte formation. Soft tissues: No joint effusion. No suspicious soft tissue calcifications. IMPRESSION: 1. Osteoarthritis. 2. No acute fracture. No osseous lesion. If symptoms and/or clinical suspicion for pathology persist, further assessment with repeat, or advanced imaging (e.g., CT, MRI, or bone scan) may be helpful for further assessment. Dictated by: Sammie Galvez M.D. on 09/24/2022 at 13:24 Approved by: Sammie Galvez M.D. on 09/24/2022 at 13:25
== END ==
PROVIDERS: PCP Student in an Organized Health Care Education/Training Program; Referring Provider Student in an Organized Health Care Education/Training Program; Visit Provider Student in an Organized Health Care Education/Training Program
DX: M17.0 Bilateral primary osteoarthritis of knee (principal); M25.561 Pain in right knee; M25.562 Pain in left knee
CPT/HCPCS: 73562

== ENCOUNTER → 2022-10-14 10:16 | Outpatient (CLI) | payer OTHER, SELFPAY | PROVIDERS: PCP Student in an Organized Health Care Education/Training Program; Referring Provider Student in an Organized Health Care Education/Training Program; Visit Provider Surgery | DX: L97.412 Non-pressure chronic ulcer of right heel and midfoot with fat layer exposed (principal); E11.621 Type 2 diabetes mellitus with foot ulcer; E11.42 Type 2 diabetes mellitus with diabetic polyneuropathy; R60.0 Localized edema | CPT/HCPCS: 11042; 99204 ==

== ENCOUNTER → 2022-10-18 09:21 | Outpatient (CLI) | payer OTHER, SELFPAY | PROVIDERS: PCP Student in an Organized Health Care Education/Training Program; Referring Provider Student in an Organized Health Care Education/Training Program; Visit Provider Surgery | DX: E11.622 Type 2 diabetes mellitus with other skin ulcer (principal); L97.312 Non-pressure chronic ulcer of right ankle with fat layer exposed; M25.571 Pain in right ankle and joints of right foot | CPT/HCPCS: 29581 ==

== ENCOUNTER → 2022-10-20 09:19 | Outpatient (CLI) | payer OTHER, SELFPAY | PROVIDERS: PCP Student in an Organized Health Care Education/Training Program; Referring Provider Student in an Organized Health Care Education/Training Program; Visit Provider Surgery | DX: E11.621 Type 2 diabetes mellitus with foot ulcer (principal); L97.412 Non-pressure chronic ulcer of right heel and midfoot with fat layer exposed; E11.42 Type 2 diabetes mellitus with diabetic polyneuropathy; R60.0 Localized edema; Z86.73 Personal history of transient ischemic attack (TIA), and cerebral infarction without residual deficits | CPT/HCPCS: 15271; Q4101 ==

== ENCOUNTER → 2022-10-27 09:09 | Outpatient (CLI) | payer OTHER, SELFPAY | LOC: WC 09:09 | PROVIDERS: PCP Student in an Organized Health Care Education/Training Program; Referring Provider Student in an Organized Health Care Education/Training Program; Visit Provider Surgery | DX: E11.622 Type 2 diabetes mellitus with other skin ulcer (principal); L97.312 Non-pressure chronic ulcer of right ankle with fat layer exposed; E11.40 Type 2 diabetes mellitus with diabetic neuropathy, unspecified; R60.0 Localized edema | CPT/HCPCS: 11042 ==

== ENCOUNTER → 2022-11-03 13:51 | Outpatient (CLI) | payer OTHER, SELFPAY | PROVIDERS: PCP Student in an Organized Health Care Education/Training Program; Referring Provider Student in an Organized Health Care Education/Training Program; Visit Provider Surgery | DX: E11.621 Type 2 diabetes mellitus with foot ulcer (principal); L97.312 Non-pressure chronic ulcer of right ankle with fat layer exposed; R60.0 Localized edema | CPT/HCPCS: 29581; 99213 ==

== ENCOUNTER → 2022-11-11 09:17 | Outpatient (CLI) | payer OTHER, SELFPAY | LOC: WC 09:18 | PROVIDERS: PCP Student in an Organized Health Care Education/Training Program; Referring Provider Student in an Organized Health Care Education/Training Program; Visit Provider Surgery | DX: E11.621 Type 2 diabetes mellitus with foot ulcer (principal); L97.412 Non-pressure chronic ulcer of right heel and midfoot with fat layer exposed; R60.0 Localized edema; E11.40 Type 2 diabetes mellitus with diabetic neuropathy, unspecified | CPT/HCPCS: 99212; 99213 ==

== ENCOUNTER → 2022-12-20 18:22 | Outpatient (CLI) | payer OTHER, SELFPAY | PROVIDERS: PCP Student in an Organized Health Care Education/Training Program; Visit Provider Physician Assistant | DX: R30.0 Dysuria (principal); R31.9 Hematuria, unspecified | CPT/HCPCS: 87086 ==

== ENCOUNTER 2023-04-15 10:02 | Emergency (ER) | payer OTHER, SELFPAY ==
[2023-04-15 10:10] VITALS: BP 202/104; PULSE 80; RESP 16; TEMP 36.6; O2SAT 99; BMI 32.5
--- NOTE | 2023-04-15 10:17 | ED.GENADULT ---
HPI - General Adult General Chief complaint: Urogenital-Male Stated complaint: needs catherder changed Time Seen by Provider: 04/15/23 10:14 Source: patient and family Mode of arrival: Ambulatory History of Present Illness HPI narrative: Patient is a 67-year-old male. Has a suprapubic catheter in place secondary to outlet obstruction. Last catheter was changed 1 month ago. He is here for catheter exchange. They are moving out of the local area on Tuesday. His 1st appointment with the urologist is not until a couple weeks after that so they would like the catheter changed prior to moving. He has no symptoms. Related Data Home Medications Medication Instructions Recorded Confirmed nortriptyline 25 mg capsule 25 mg PO HS ##0 03/29/17 12/20/22 amlodipine 10 mg tablet 10 mg PO QDAY #0 tabs 06/12/18 12/20/22 aspirin 81 mg tablet,delayed 81 mg PO DAILY #0 tabs 06/12/18 12/20/22 release atorvastatin 40 mg tablet (Lipitor) 40 mg PO QDAY #0 tabs 06/12/18 12/20/22 diphenhydramine HCl 50 mg capsule 50 mg PO BEDTIME PRN Sleep 06/12/18 12/20/22 lisinopril 40 mg tablet 40 mg PO QDAY #0 tabs 06/12/18 12/20/22 magnesium 200 mg tablet 400 mg PO DAILY 06/12/18 12/20/22 furosemide 20 mg tablet mg PO 12/20/22 12/20/22 metformin 500 mg tablet 500 mg PO BID 12/20/22 12/20/22 potassium chloride 10 mEq 10 meq PO DAILY 12/20/22 12/20/22 tablet,extended release(part/cryst) tamsulosin 0.4 mg capsule 0.4 mg PO DAILY 12/20/22 12/20/22 Previous Rx's Medication Instructions Recorded Disabled Parking #1 ea 08/21/18 hydrochlorothiazide 25 mg tablet 25 mg PO QDAY #90 tabs 09/21/18 doxycycline hyclate 100 mg capsule 100 mg PO BID #14 caps 09/23/22 cefdinir 300 mg capsule 300 mg PO BID #14 caps 12/20/22 Allergies Allergy/AdvReac Type Severity Reaction Status Date / Time No Known Drug Allergies Allergy Verified 04/15/23 10:14 Review of Systems Gastrointestinal Gastrointestinal: Reports system reviewed and no additional complaints, except as documented Genitourinary Genitourinary: Reports system reviewed and no additional complaints, except as documented Patient History Medical History Balance problem Chronic cough (~2008) Shoulder pain (~2014) Gout Hearing loss (~2016) Chronic constipation (~1999) H/O adenomatous polyp of colon (~2013) Constipation Hyperlipidemia Hypertension [place]osta's palsy (~2016) Surgical History Anesthesia History of ankle surgery (~1998) History of hip replacement, total History of vasectomy (~1994) S/P cervical spinal fusion (~2009) Family History Father Heart disease Hypertension High cholesterol Mother Heart disease Hypertension High cholesterol Stroke Family/Other Mental health problem Social History household members: spouse Smoking Status: Never smoker Smoking Status: Never smoker alcohol intake frequency: 0-2 drinks per day Alcohol type: other Substance Use Type: does not use Exam Initial Vital Signs Initial Vital Signs: Vital Signs Temperature 97.8 F 04/15/23 10:10 Pulse Rate 80 04/15/23 10:10 Respiratory Rate 16 04/15/23 10:10 Blood Pressure 202/104 H 04/15/23 10:10 Pulse Oximetry 99 04/15/23 10:10 Oxygen Delivery Method Room Air 04/15/23 10:10 GI Other: Suprapubic catheter exiting from lower abdomen. Appears well. Other: Normal external male genitalia. Skin Other: No skin changes around the area. Course Vital Signs Vital signs: Vital Signs - 8 hr 04/15/23 10:10 Temperature 97.8 F Pulse Rate 80 Respiratory Rate 16 Blood Pressure 202/104 H Pulse Oximetry 99 Oxygen Delivery Method Room Air Medical Decision Making MDM Narrative Medical decision making narrative: Current suprapubic catheter was removed and exchanged with a new in without issue. Catheter was draining prior to discharge. Will have him follow-up with urologist when he arrives at his new location. Discharge Plan Departure Patient Disposition: Home Clinical Impression: Encounter for suprapubic catheter care Instructions: How to Care for a Suprapubic Catheter Activity Restrictions/Additional Instructions: Continue to take all of your medications as directed. Keep all of your scheduled medical appointments. Return to the emergency department for new symptoms. Prescriptions: No Action doxycycline hyclate 100 mg capsule 100 mg PO BID Qty: 14 0RF furosemide 20 mg tablet PO tamsulosin 0.4 mg capsule 0.4 mg PO DAILY metformin 500 mg tablet 500 mg PO BID potassium chloride 10 mEq tablet,ER particles/crystals 10 meq PO DAILY cefdinir 300 mg capsule 300 mg PO BID Qty: 14 0RF nortriptyline 25 MG capsule 25 mg PO HS Qty: 0 hydrochlorothiazide 25 mg tablet 25 mg PO QDAY Qty: 90 3RF amlodipine 10 mg tablet 10 mg PO QDAY Qty: 0 atorvastatin [Lipitor] 40 mg tablet 40 mg PO QDAY Qty: 0 lisinopril 40 mg tablet 40 mg PO QDAY Qty: 0 aspirin 81 mg tablet,delayed release (DR/EC) 81 mg PO DAILY Qty: 0 magnesium 200 mg tablet 400 mg PO DAILY diphenhydramine HCl 50 mg capsule 50 mg PO BEDTIME PRN (Reason: Sleep) (DME) Disabled Parking Qty: 1 0RF Rx Instructions: Patient qualifies for disabled parking as per the attached form. Referrals: Gwen Payne PA-C [Primary Care Provider] - Stand Alone Forms: Patient Portal/API
--- NOTE | 2023-04-15 11:00 | PC.NURSE ---
pt with indwelling suprapubic cath that he needs changed monthly. due to have it changed 05/02 however permanently moving to [place], [place] next week and has not set up care with uro at this time. appears intact, urine is clear however tubing is cloudy, no odor noted. catheter changed with Dr Hayden at bedside. No complications. draining clear yellow urine.
== END 2023-04-15 10:30 | disposition home or self-care (01) ==
PROVIDERS: Emergency Provider Emergency Medicine; PCP Student in an Organized Health Care Education/Training Program
DX: T85.9XXA Unspecified complication of internal prosthetic device, implant and graft, initial encounter (principal); Z79.899 Other long term (current) drug therapy
CPT/HCPCS: 99283